=== PATIENT | female | born 1935 | race Hispanic/Latino ===

== ENCOUNTER 2018-01-08 12:48 | Emergency (ER) | payer OTHER ==
[2018-01-08 13:39] LABS: Urine Blood TRACE (NEG); Urine Glucose NEGATIVE (NEG); Urine Protein NEGATIVE (NEG); Urine Specific Gravity 1.025 (1.005-1.030)
[2018-01-08 14:10] LABS: Albumin 3.5 g/dL (3.4-5.0); Bilirubin Direct 0.1 mg/dL (0-0.2); Bilirubin Total 0.5 mg/dL (0.2-1.0); Potassium 4.5 mmol/L (3.5-5.1); Protein, Total 7.4 g/dL (6.4-8.2)
[2018-01-08 14:14] LABS: Urine Bacteria <20 /HPF (<20); Urine Culture Reflex Order REFLEXED; Urine Mucus LIGHT /HPF (NONE SEEN)
[2018-01-08 14:34] LABS: Absolute Lymphocytes (CBC) 1.4 K/uL (0.7-4.9); Absolute Monocytes 0.4 K/uL (0.1-1.3); Absolute Neutrophil 6.9 K/uL (1.8-8.0); Basophils % 0.3 % (0-1.3); Eosinophils % 0.3 % (0-4.4); Hematocrit 38.1 % (36.0-45.0); Lymphocytes % 15.6 % (15.3-44.8); MCH 31.6 pg (27.0-35.0); MCV 92.7 fL (80-100); MPV 8.5 fL (7.6-11.3); Monocytes % 4.9 % (3.3-12.3); RBC Red Blood Cell Count 4.11 M/uL (3.86-4.86)
--- NOTE | 2018-01-08 14:43 | RAD REPORT ---
EXAM DESCRIPTION: CT - Abdomen Pelvis W Contrast - 01/08/2018 2:28 pm CLINICAL HISTORY: Left-sided abdominal pain, back pain COMPARISON: None. TECHNIQUE: Biphasic, helical CT imaging of the abdomen and pelvis was performed following 100 ml non -ionic IV contrast. Oral contrast was given. All CT scans are performed using dose optimization technique as appropriate and may include automated exposure control or mA/KV adjustment according to patient size. FINDINGS: Scarring changes are present in the lung bases. No acute lung base finding. No pericardial thickening or effusion. The liver, spleen, and pancreas show no suspicious findings. Cholecystectomy clips are present. Bilia ry tree within normal limits for a post cholecystectomy patient. Symmetric renal function is seen with no hydronephrosis or suspicious renal mass. No pyelonephritis o r acute renal parenchymal process. Contracted urinary bladder shows no suspicious finding. Uterus is absent. Ovaries are absent or atrophic. No dilated bowel loops or bowel wall thickening. Patient has prominent sigmoid diverticulosis without diverticulitis or mass identifiable. No free air, free fluid or inflammatory stranding. No hernia, mass or bulky lymphadenopathy. No adrenal abnormality. Disc and bony degenerative changes are present. No fracture or pathologic bone process identifiable. IMPRESSION: Prominent diverticulosis without diverticulitis, mass or other acute GI process. Prominent bony degenerative change without acute or destructive finding.
--- NOTE | 2018-01-08 14:56 | ER ---
Nurse's Notes [facility] Name: Albania Ricks Age: 82 yrs Sex: Female : 1935 Arrival Date: 01/08/2018 Time: 12:52 Bed 13 Private MD: None, None Diagnosis: Nausea and vomiting;Abdominal and pelvic pain;Low back pain Presentation: 01/08 13:00 Presenting complaint: Patient states: left low back pain radiating to LLQ that began aa5 this morning. Pt also reports diarrhea and vomited once today. Pt states "when I pee it's only a little bit at a time". 13:00 Transition of care: patient was not received from another setting of care. Onset of aa5 symptoms was January 08, 2018. Risk Assessment: Do you want to hurt yourself or someone else? Patient reports no desire to harm self or others. Initial Sepsis Screen: Does the patient meet any 2 criteria? No. Patient's initial sepsis screen is negative. Does the patient have a suspected source of infection? No. Patient's initial sepsis screen is negative. Care prior to arrival: None. 13:00 Method Of Arrival: Ambulatory aa5 13:00 Acuity: MCKENZIE 3 aa5 Historical: - Allergies: 13:05 Lisinopril (cough); aa5 - Home Meds: 13:20 metformin ER 500mg BID [Active]; losartan 50 mg oral tab 1 tab once daily [Active]; aa5 carvedilol 12.5 mg oral tab 1 tab 2 times per day [Active]; omeprazole 20 mg Oral cpDR 1 cap 2 times per day [Active]; - PMHx: 13:05 Diabetes - NIDDM; Hypertension; Hyperlipidemia; aa5 - PSHx: 13:05 Hysterectomy; Cholecystectomy; Tonsillectomy; aa5 - Immunization history:: Adult Immunizations unknown. - Social history:: Smoking status: Patient/guardian denies using tobacco. - Ebola Screening: : No symptoms or risks identified at this time. Screenin:10 Abuse screen: Denies threats or abuse. Nutritional screening: No deficits noted. aa5 Tuberculosis screening: No symptoms or risk factors identified. Fall Risk None identified. Assessment: 13:05 General: Appears uncomfortable, Behavior is calm, cooperative. Pain: Complains of pain aa5 in left low back Pain radiates to left lower quadrant Pain currently is 10 out of 10 on a pain scale. Quality of pain is described as crampy, Pain began this morning Is continuous. Neuro: Level of Consciousness is awake, alert, obeys commands, Oriented to person, place, time, situation. Cardiovascular: Heart tones S1 S2 present Rhythm is regular. Respiratory: Airway is patent Respiratory effort is even, unlabored, Respiratory pattern is regular, symmetrical, Breath sounds are clear bilaterally. GI: Abdomen is round non-distended, Bowel sounds present X 4 quads. Abd is soft X 4 quads Abdomen is tender to palpation in left lower quadrant Reports diarrhea, nausea, vomiting. : Reports Pt "when I pee it's only a little bit at a time" Denies burning with urination. EENT: No signs and/or symptoms were reported regarding the EENT system. Derm: Skin is pink, warm \\T\\ dry. Musculoskeletal: Range of motion: intact in all extremities. 13:45 Reassessment: Patient and/or family updated on plan of care and expected duration. Pain aa5 level reassessed. Patient is alert, oriented x 3, equal unlabored respirations, skin warm/dry/pink. Patient denies pain at this time. Patient states feeling better. Awaiting CT scan, pt notified of wait time . 14:15 Reassessment: Patient and/or family updated on plan of care and expected duration. Pain aa5 level reassessed. Patient is alert, oriented x 3, equal unlabored respirations, skin warm/dry/pink. Patient denies pain at this time. 14:20 Reassessment: Pt taken to CT scan via wheelchair . aa5 15:00 Reassessment: Dr. Oneil at bedside speaking to pt about results . aa5 15:30 Reassessment: Patient is alert, oriented x 3, equal unlabored respirations, skin aa5 warm/dry/pink. Patient denies pain at this time. Vital Signs: 13:05 BP 168 / 72; Pulse 67; Resp 18 S; Temp 98.2(O); Pulse Ox 96% on R/A; Weight 77.11 kg aa5 (R); Height 5 ft. 7 in. (170.18 cm) (R); 13:58 BP 157 / 65; Pulse 66; Resp 16 S; Pulse Ox 96% on R/A; Pain 0/10; aa5 13:05 Body Mass Index 26.63 (77.11 kg, 170.18 cm) aa5 ED Course: 12:52 Patient arrived in ED. mr 12:53 None, None is Private Physician. mr 12:59 Austin Oneil MD is Attending Physician. kdr 13:00 Arm band placed on Patient placed in an exam room, on a stretcher. aa5 13:00 Patient has correct armband on for positive identification. Placed in gown. Bed in low aa5 position. Call light in reach. Side rails up X2. 13:02 Sahra Garcia, RN is Primary Nurse. aa5 13:03 Triage completed. aa5 13:35 Inserted saline lock: 22 gauge in left forearm, using aseptic technique. Blood aa5 collected. 13:40 Initial lab(s) drawn, by ut, sent to lab. aa5 14:22 CT completed. Patient tolerated procedure well. Patient moved to CT via wheelchair. Patient moved back from CT. 14:28 CT Abd/Pelvis - W/Contrast In Process Unspecified. EDMS 15:30 No provider procedures requiring assistance completed. IV discontinued, intact, aa5 bleeding controlled, No redness/swelling at site. Pressure dressing applied. Administered Medications: No medications were administered Point of Care Testing: Blood Glucose: 13:17 Blood Glucose: 178 mg/dL; aa5 Ranges: Outcome: 14:55 Discharge ordered by . kdr 15:30 Discharged to home ambulatory, with friend. aa5 15:30 Condition: good 15:30 Discharge instructions given to patient, Instructed on discharge instructions, follow up and referral plans. medication usage, Demonstrated understanding of instructions, follow-up care, medications, Prescriptions given X 3. 15:31 Patient left the ED. 5 Signatures: Dispatcher [employer] EDDE Austin Oneil MD MD [facility] Lori Jones Kate Alonzo Sahra Garcia, RN RN 5 Lori Corral [facility]
--- NOTE | 2018-01-08 14:56 | EDPHYS ---
Physician Documentation [facility] Name: Albania Ricks Age: 82 yrs Sex: Female : 1935 Arrival Date: 01/08/2018 Time: 12:52 Bed 13 Private MD: None, None ED Physician Austin Oneil HPI: 01/08 17:09 This 82 yrs old Female presents to ER via Ambulatory with complaints of kdr Vomiting, Back Pain. 17:10 The patient presents with abdominal pain in the left upper quadrant, in the left lower kdr quadrant. Onset: The symptoms/episode began/occurred acutely, this morning. The symptoms do not radiate. Associated signs and symptoms: Pertinent positives: nausea and vomiting, Pertinent negatives: chest pain, constipation, diarrhea, dysuria, fever, headache, hematuria, shortness of breath. The symptoms are described as achy, crampy, intermittent, vague. Modifying factors: The symptoms are alleviated by nothing, the symptoms are aggravated by nothing. Severity of pain: At its worst the pain was moderate severe in the emergency department the pain has resolved. The patient has not experienced similar symptoms in the past. The patient has not recently seen a physician. Historical: - Allergies: 13:05 Lisinopril (cough); aa5 - Home Meds: 13:20 metformin ER 500mg BID [Active]; losartan 50 mg oral tab 1 tab once daily [Active]; aa5 carvedilol 12.5 mg oral tab 1 tab 2 times per day [Active]; omeprazole 20 mg Oral cpDR 1 cap 2 times per day [Active]; - PMHx: 13:05 Diabetes - NIDDM; Hypertension; Hyperlipidemia; aa5 - PSHx: 13:05 Hysterectomy; Cholecystectomy; Tonsillectomy; aa5 - Immunization history:: Adult Immunizations unknown. - Social history:: Smoking status: Patient/guardian denies using tobacco. - Ebola Screening: : No symptoms or risks identified at this time. ROS: 17:10 Constitutional: Negative for fever, chills, and weight loss, Eyes: Negative for injury, kdr pain, redness, and discharge, ENT: Negative for injury, pain, and discharge, Neck: Negative for injury, pain, and swelling, Cardiovascular: Negative for chest pain, palpitations, and edema, Respiratory: Negative for shortness of breath, cough, wheezing, and pleuritic chest pain, Back: Negative for injury and pain, : Negative for injury, bleeding, discharge, and swelling, MS/Extremity: Negative for injury and deformity, Skin: Negative for injury, rash, and discoloration, Neuro: Negative for headache, weakness, numbness, tingling, and seizure activity. Psych: Negative for depression, anxiety, suicide ideation, homicidal ideation, and hallucinations, Allergy/Immunology: Negative for hives, rash, and allergies, Endocrine: Negative for neck swelling, polydipsia, polyuria, polyphagia, and marked weight changes, Hematologic/Lymphatic: Negative for swollen nodes, abnormal bleeding, and unusual bruising. 17:10 Abdomen/GI: Positive for abdominal pain, nausea and vomiting, Negative for constipation, abdominal cramps, abdominal distension, anorexia, dysphagia, hematemesis, black/tarry stool, rectal pain. Exam: 17:10 Constitutional: This is a well developed, well nourished patient who is awake, alert, kdr and in no acute distress. Head/Face: Normocephalic, atraumatic. Eyes: Pupils equal round and reactive to light, extra-ocular motions intact. Lids and lashes normal. Conjunctiva and sclera are non-icteric and not injected. Cornea within normal limits. Periorbital areas with no swelling, redness, or edema. Neck: Trachea midline, no thyromegaly or masses palpated, and no cervical lymphadenopathy. Supple, full range of motion without nuchal rigidity, or vertebral point tenderness. No Meningismus. Chest/axilla: Normal chest wall appearance and motion. Nontender with no deformity. No lesions are appreciated. Cardiovascular: Regular rate and rhythm with a normal S1 and S2. No gallops, murmurs, or rubs. Normal PMI, no JVD. No pulse deficits. Respiratory: Lungs have equal breath sounds bilaterally, clear to auscultation and percussion. No rales, rhonchi or wheezes noted. No increased work of breathing, no retractions or nasal flaring. Back: No spinal tenderness. No costovertebral tenderness. Full range of motion. Skin: Warm, dry with normal turgor. Normal color with no rashes, no lesions, and no evidence of cellulitis. MS/ Extremity: Pulses equal, no cyanosis. Neurovascular intact. Full, normal range of motion. Neuro: Awake and alert, GCS 15, oriented to person, place, time, and situation. Cranial nerves II-XII grossly intact. Motor strength 5/5 in all extremities. Sensory grossly intact. Cerebellar exam normal. Normal gait. Psych: Awake, alert, with orientation to person, place and time. Behavior, mood, and affect are within normal limits. 17:10 Abdomen/GI: Inspection: abdomen appears normal, Bowel sounds: normal, Palpation: soft, mild abdominal tenderness, in the anterior aspect of left lateral abdomen. Vital Signs: 13:05 BP 168 / 72; Pulse 67; Resp 18 S; Temp 98.2(O); Pulse Ox 96% on R/A; Weight 77.11 kg aa5 (R); Height 5 ft. 7 in. (170.18 cm) (R); 13:58 BP 157 / 65; Pulse 66; Resp 16 S; Pulse Ox 96% on R/A; Pain 0/10; aa5 13:05 Body Mass Index 26.63 (77.11 kg, 170.18 cm) aa5 MDM: 14:55 Patient medically screened. kdr 17:10 Data reviewed: vital signs, nurses notes, lab test result(s), radiologic studies. kdr Counseling: I had a detailed discussion with the patient and/or guardian regarding: the historical points, exam findings, and any diagnostic results supporting the discharge/admit diagnosis, lab results, radiology results, the need for outpatient follow up. Special discussion: Based on the patient's Hx, exam, and Dx evaluation, there is no indication for emergent surgery or inpatient Tx. It is understood by the patient/guardian that if the Sx's persist or worsen they need to return immediately for re-evaluation. I discussed with the patient/guardian in detail that at this point there is no indication for admission to the hospital. It is understood, however, that if the symptoms persist or worsen the patient needs to return immediately for re-evaluation. 01/08 13:34 Order name: Urine Dipstick--Ancillary (enter results); Complete Time: 13:40 eb 01/08 13:39 Order name: Basic Metabolic Panel; Complete Time: 14:53 kdr 01/08 13:39 Order name: CBC with Diff; Complete Time: 14:53 kdr 01/08 13:39 Order name: Creatinine for Radiology; Complete Time: 14:53 kdr 01/08 13:39 Order name: Hepatic Function; Complete Time: 14:53 [facility] 01/08 13:39 Order name: Lipase; Complete Time: 14:53 [facility] 01/08 13:39 Order name: Urine Microscopic Only; Complete Time: 14:53 [facility] 01/08 13:39 Order name: IV Saline Lock; Complete Time: 13:55 [facility] 01/08 13:39 Order name: Labs collected and sent; Complete Time: 13:55 [facility] 01/08 13:39 Order name: Urine Dipstick-Ancillary (obtain specimen); Complete Time: 13:56 [facility] 01/08 13:39 Order name: CT Abd/Pelvis - W/Contrast; Complete Time: 14:53 [facility] 01/08 14:16 Order name: Urine Culture EDMS Administered Medications: No medications were administered Point of Care Testing: Blood Glucose: 13:17 Blood Glucose: 178 mg/dL; aa5 Ranges: Critical Glucose Levels:Adult <50 mg/dl or >400 mg/dl <40 mg/dl or >180 mg/dl Disposition: 01/08/18 14:55 Discharged to Home. Impression: Nausea and vomiting, Abdominal and pelvic pain, Low back pain. - Condition is Stable. - Discharge Instructions: Abdominal Pain, Adult, [id number], Back Pain, Adult, [id number], Diverticulosis. - Prescriptions for Zofran 4 mg Oral Tablet - take 1 tablet by ORAL route every 4-6 hours As needed; 15 tablet. Tramadol 50 mg Oral Tablet - take 1 tablet by ORAL route every 8 hours as needed; 12 tablet. Pepcid 20 mg Oral Tablet - take 1 tablet by ORAL route once daily; 20 tablet. - Medication Reconciliation Form, Thank You Letter form. - Follow up: Private Physician; When: 2 - 3 days; Reason: If symptoms return, Further diagnostic work-up, Recheck today's complaints, Continuance of care, Re-evaluation by your physician. - Problem is new. - Symptoms have improved. Signatures: Dispatcher [employer] EDMS Austin Oneil MD MD kdr Calderon, Audri RN RN [email or web address] Lori Corral5 Corrections: (The following items were deleted from the chart) 15:31 14:55 01/08/2018 14:55 Discharged to Home. Impression: Nausea and vomiting; Abdominal mh5 and pelvic pain; Low back pain. Condition is Stable. Forms are Medication Reconciliation Form, Thank You Letter, Antibiotic Education, Prescription Opioid Use. Follow up: Private Physician; When: 2 - 3 days; Reason: If symptoms return, Further diagnostic work-up, Recheck today's complaints, Continuance of care, Re-evaluation by your physician. Problem is new. Symptoms have improved. kdr
== END 2018-01-08 15:31 | disposition home or self-care (01) ==
LOC: ER 12:48
DX: R11.2 Nausea with vomiting, unspecified (principal); R10.9 Unspecified abdominal pain; R10.2 Pelvic and perineal pain; M54.5 Low back pain; E11.9 Type 2 diabetes mellitus without complications; E78.5 Hyperlipidemia, unspecified; I10 Essential (primary) hypertension; Z88.8 Allergy status to other drugs, medicaments and biological substances
CPT/HCPCS: 36415; 74177; 80048; 80076; 82962; 83690; 85025; 87086; 99284; Q9967; 81003; 81015; 87088

== ENCOUNTER 2020-01-19 15:18 | Emergency (ER) | payer OTHER ==
--- OUTSIDE RECORDS SUMMARY | 2020-01-19 15:20 | XMS REPORT | Continuity of Care Document ---
:1935 Author Organization [facility] t Address [address] [place] [address] Care Team Providers Name Role Phone Nicki Broussard MD Attending Clinician Problems This patient has no known problems. Allergies, Adverse Reactions, Alerts This patient has no known allergies or adverse reactions. Medications This patient has no known medications. Procedures This patient has no known procedures. Encounters Start End Encounter Admission Attending Care Care Encounter Source Date/Time Date/Time Type Type Clinicians Facility Department ID 2019-12-21 2019-12-21 Refill JOEL Broussard [id number] 00:00:00 00:00:00 Lori Caceres [facility] [id number] [facility] [id number] [place] [id number] Results This patient has no known results.
--- OUTSIDE RECORDS SUMMARY | 2020-01-19 15:21 | XMS REPORT | Summary of Care ---
:1935 Author Organization [facility] - [facility] Address [address] [place] [address] Care Team Providers Name Role Phone Nicki Broussard MD Primary Care Provider Reason for Visit Reason Comments Refill Request Encounter Details Date Type Department Care Team Description 12/21/2019 Refill [facility]- Lori Broussard MD Refill Request [id number] [place] [address] [place] [address], [place] [address] Allergies No Known Allergiesdocumented as of this encounter (statuses as of 01/04/2020) Medications Medication Sig Dispensed Refills Start End Status Date Date OMEPRAZOLE 20 MG ORAL one po bid 180 3 02/25/20 Active CPDR 09 B COMPLEX & C NO.20-FOLIC Take 1 Tab 0 Active ACID ORAL by mouth daily. hydrocortisone 1% in Apply to 16 oz 5 08/17/19 Active eucerin (COMPOUNDED) Crea affected 16 creamIndications: Xerosis area(s) as of skin needed for Itching. acetaminophen 500 mg Take 1 100 tablet 2 01/10/20 Active tablet tablet by 17 mouth every 6 (six) hours as needed for Pain. 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 Dx insulin E11.9 ALPRAZolam (XANAX) 0.25 Take 1 60 tablet 1 01/23/20 Active mg tabletIndications: tablet by 19 Anxiety mouth 2 (two) times daily as needed. timolol 0.5 % ophthalmic Place 1 0 06/01/20 Active solution Drop in 19 both eyes 2 (two) times daily. Polyethylene Glycol 3350 Take 1 0 Active (MIRALAX) 17 gram powder Packet by mouth as needed for Constipatio n. docusate (COLACE) 100 mg Take 100 mg 0 Active capsule by mouth once daily as needed for Constipatio n. Carboxymethylcellulose Place 1 0 Active Sodium (REFRESH TEARS) Drop in 0.5 % Drop each eye 2 (two) times daily. DUREZOL 0.05 % Drop 0 06/29/19 Active 20 ILEVRO 0.3 % DrpS 0 06/30/19 Ac tive 20 ofloxacin 0.3 % 0 06/29/19 Acti ve ophthalmic solution 20 rosuvastatin (CRESTOR) 40 Take 1 90 tablet 4 08/03/19 Active mg tabletIndications: tablet by 20 Type 2 diabetes mellitus mouth at without complication, bedtime. without long-term current use of insulin, Mixed hypercholesterolemia and hypertriglyceridemia losartan 50 mg Take 1 90 tablet 4 08/03/19 Activ e tabletIndications: Type 2 tablet by 20 diabetes mellitus without mouth complication, without daily. long-term current use of insulin, Essential hypertension, benign ONETOUCH VERIO USE STRIP 100 Strip 3 12/21/19 Acti ve stripIndications: Type 2 TO CHECK 20 diabetes mellitus without GLUCOSE complication, without ONCE DAILY long-term current use of insulin metFORMIN 500 mg tablet Take 1 180 tablet 1 01/04/20 Active tablet by 20 mouth 2 (two) times daily with meals. ONETOUCH VERIO USE 100 Strip 1 05/25/20 Disco ntinued stripIndications: Type 2 DIRECTED 19 020 diabetes mellitus without ONCE DAILY complication, without long-term current use of insulin metformin ER 500 mg 24 hr Take 1 180 tablet 4 08/03/1912/15 Discontinued tabletIndications: Type 2 tablet by 20 020 (Reorder) diabetes mellitus without mouth daily complication, without with long-term current use of breakfast. insulin metformin ER 500 mg 24 hr Take 1 180 tablet 4 12/21/1906/08 Discontinued tabletIndications: Type 2 tablet by 20 020 (Alternate diabetes mellitus without mouth daily therapy) complication, without with long-term current use of breakfast. insulin documented as of this encounter (statuses as of 01/04/2020) Active Problems Problem Noted Date Need for vaccination 07/07/2018 Type 2 diabetes mellitus without complication, without long-term current 09/19/2017 use of insulin Mixed hypercholesterolemia and hypertriglyceridemia MARCELLE-inhibitor cough 08/17/2015 Essential hypertension, benign 05/12/2009 Other symptoms involving head and neck(784.99) 008 Esophageal reflux 08/22/2007 DRY MOUTH 08/22/2007 Other congenital anomaly of gallbladder, bile ducts, a nd liver documented as of this encounter (statuses as of 01/04/2020) Resolved Problems Problem Noted Date Resolved Date Type 2 diabetes mellitus without complications 08/22/2007 09/19/2017 Overview: ICD10 Diagnosis Term Spinner Concrete Pipe Utility HLD (hyperlipidemia) 08/22/2007 01/09/2017 Overview: ICD10 Diagnosis Term Spinner Concrete Pipe Utility documented as of this encounter (statuses as of 01/04/2020) Immunizations Name Administration Dates Next Due Influenza High Dose 03/22/2019, 07/07/2018, 05/01/2017, 04/02/2016, 04/24/2015, 04/27/2010 Influenza Virus Vaccine 05/02/2009 Pneumococcal 13 Conjugate, PCV13 09/13/2016 (Prevnar 13) Pneumococcal Polysaccharide, PPSV23 04/27/2010 (PNEUMOVAX) documented as of this encounter Social History Tobacco Use Types Packs/Day Years Used Date Never Smoker Smokeless Tobacco: Never Used Alcohol Use Drinks/Week oz/Week Comments No Sex Assigned at Date Recorded Not on file Job Start Date Occupation Industry Not on file Not on file Not on file Travel History Travel Start Travel End No recent travel history available. documented as of this encounter Last Filed Vital Signs Not on filedocumented in this encounter Plan of Treatment Health Maintenance Due Date Last Done Comments DTaP,Tdap,and Td Vaccines (1 - 1948 Tdap) Zoster Recombinant Vaccine 1987 (SHINGRIX) (1 of 2) Medicare Wellness Visit 2002 URINE MICROALBUMIN 09/25/2019 09/24/2018, 09/13/2016, 02/17/2015, Additional history exists EYE EXAM 01/20/2020 01/19/2019 FOOT EXAM 01/23/2020 01/22/2019, 01/22/2019 HgA1C 02/01/2020 08/03/2019, 01/22/2019, 09/24/2018, Additional history exists INFLUENZA VACCINE (#1) 2020 03/22/2019, 07/07/2018, 05/01/2017, Additional history exists LDL-C 02/25/2020 02/24/2019, 01/22/2019, 09/24/2018, Additional history exists CREATININE (SERUM) 06/29/2020 06/29/2019, 01/22/2019, 04/23/2017, Additional history exists Depression Screening 08/12/2020 08/12/2019 Osteoporosis Screening 02/05/2029 02/05/2019 PNEUMOCOCCAL VACCINES 65+ Completed 09/13/2016, 04/27/2010 documented as of this encounter Implants Implanted Type Area Employment Service Specialist Device Shelf Model / Serial Identifier Expiration / Lot Date Lens, Cas #Sn60wf - [id number] LENS Left: Eye Cas 12/14/2023 SN60WF / Implanted: Qty: 1 on 07/08/2019 by Alberto Lopez MD at [facility] 2 [id number] / NA Lens, Cas #Sn60wf - [id number] LENS Right: Cas 10/14/2023 SN60WF / Implanted: Qty: 1 on 08/12/2019 by Alberto Lopez MD at [facility] Eye 1 [id number] / NA documented as of this encounter Results Not on filedocumented in this encounter Visit Diagnoses Diagnosis Type 2 diabetes mellitus without complic ation, without long-term current use of insulin documented in this encounter Insurance Payer Benefit Plan / Subscriber ID Effective Phone Address T ype Group Dates MEDICARE MEDICARE PART xxxxxxxxxxx 2002-Pre [phone] Medicare A & B sent [phone] [id number] MAZIN [place]Z [phone] [employer] xxxxxxxxx 2019-Pres [address] [place] [id number] [place] [address] documented as of this encounter
--- OUTSIDE RECORDS SUMMARY | 2020-01-19 15:21 | XMS REPORT | Summary of Care ---
:1935 Author Organization [facility] Address [address] [place] [address] Care Team Providers Name Role Phone Nicki Broussard MD Primary Care Provider Reason for Visit Reason Comments Diabetes Hypertension Encounter Details Date Type Department Care Team Description 11/05/2019 Telemedicine Visit [facility] Lori Broussard Type 2 d iabetes mellitus without complication, without long-term current use of insulin (Primary Dx); Geriatrics- EMD Essential hypertension, benign; [address] Gastroesophageal reflux dise ase without esophagitis Primary Care [id number] [place], [place] [address] [address], [address] [place], [place] [phone] [address] (Fax) [phone] Allergies No Known Allergiesdocumented as of this encounter (statuses as of 11/05/2019) Medications Medication Sig Dispensed Refills Start Date End Date Status OMEPRAZOLE 20 MG ORAL CPDR one po bid 180 3 02/24/2009 Active B COMPLEX & C NO.20-FOLIC Take 1 Tab by 0 Active ACID ORAL mouth daily. hydrocortisone 1% in Apply to 16 oz 5 08/17/2015 Active eucerin (COMPOUNDED) Crea affected creamIndications: Xerosis area(s) as of skin needed for Itching. acetaminophen 500 mg tablet Take 1 tablet 100 tablet 2 017 Active by mouth every 6 (six) hours as needed for Pain. latanoprost 0.005 % Place 1 Drop 2 10/13/2018 Active ophthalmic in both eyes dropsIndications: Chronic at bedtime. primary angle-closure glaucoma of both eyes, moderate stage ONE TOUCH DELICA 33 gauge Use as 100 Each 1 10/27/2018 Active MiscIndications: Type 2 directed to diabetes mellitus without test blood complication, without sugar once long-term current use of daily. Dx insulin E11.9 ALPRAZolam (XANAX) 0.25 mg Take 1 tablet 60 tablet 1 9 Active tabletIndications: Anxiety by mouth 2 (two) times daily as needed. ONETOUCH VERIO USE 100 Strip 1 05/25/2019 Acti ve stripIndications: Type 2 DIRECTED ONCE diabetes mellitus without DAILY complication, without long-term current use of insulin timolol 0.5 % ophthalmic Place 1 Drop 0 06/01/2019 Active solution in both eyes 2 (two) times daily. Polyethylene Glycol 3350 Take 1 Packet 0 Active (MIRALAX) 17 gram powder by mouth as needed for Constipation. docusate (COLACE) 100 mg Take 100 mg 0 Active capsule by mouth once daily as needed for Constipation. Carboxymethylcellulose Place 1 Drop 0 Active Sodium (REFRESH TEARS) 0.5 in each eye 2 % Drop (two) times daily. DUREZOL 0.05 % Drop 0 06/29/2019 Active ILEVRO 0.3 % DrpS 0 06/30/2019 A ctive ofloxacin 0.3 % ophthalmic 0 06/29/2019 Active solution metformin ER 500 mg 24 hr Take 1 tablet 180 tablet 4 0 Active tabletIndications: Type 2 by mouth diabetes mellitus without daily with complication, without breakfast. long-term current use of insulin rosuvastatin (CRESTOR) 40 Take 1 tablet 90 tablet 4 08/03/2019 Active mg tabletIndications: Type by mouth at 2 diabetes mellitus without bedtime. complication, without long-term current use of insulin, Mixed hypercholesterolemia and hypertriglyceridemia losartan 50 mg Take 1 tablet 90 tablet 4 08/03/2019 Active tabletIndications: Type 2 by mouth diabetes mellitus without daily. complication, without long-term current use of insulin, Essential hypertension, benign documented as of this encounter (statuses as of 11/05/2019) Active Problems Problem Noted Date Need for vaccination 07/07/2018 Type 2 diabetes mellitus without complication, without long-term current 09/19/2017 use of insulin Mixed hypercholesterolemia and hypertriglyceridemia AMRCELLE-inhibitor cough 08/17/2015 Essential hypertension, benign 05/12/2009 Other symptoms involving head and neck(784.99) 008 Esophageal reflux 08/22/2007 DRY MOUTH 08/22/2007 Other congenital anomaly of gallbladder, bile ducts, a nd liver documented as of this encounter (statuses as of 11/05/2019) Resolved Problems Problem Noted Date Resolved Date Type 2 diabetes mellitus without complications 08/22/2007 09/19/2017 Overview: ICD10 Diagnosis Term Early Breastfeeding Care Specialist Utility HLD (hyperlipidemia) 08/22/2007 01/09/2017 Overview: ICD10 Diagnosis Term Early Breastfeeding Care Specialist Utility documented as of this encounter (statuses as of 11/05/2019) Immunizations Name Administration Dates Next Due Influenza [...] Signs Not on filedocumented in this encounter Progress Notes Lori Broussard MD - 11/05/2019 1:30 PM CDT Geriatric Telemedicine Clinic Note Location of Patient: Home Location of Provider: Offsite Date of Service: 11/05/2019 Chief Complaint Patient presents with Diabetes Hypertension HPI: Albania Ricks is a 84 year old female who has given verbal consent for a telemedicine encounter today. Today's telemedicine encounter was conducted via telephone (audio only). Communication with patient was conducted via Telephone due to patient unable to obtain video call option. . Diabetes She has a history of Diabetes Mellitus II. Patient has no acute problems today. Symptoms are unchanged. Patient denies excessive eating, excessive thirst, foot pain, foot ulcer/infection, increased fatigue, low blood sugar, nocturia, polyuria and sweating. Results of home finger stick blood glucose are: 109 to 130. Last vision screening recent and she reports floaters since cataract surgery . Patient checks feet regularly: yes. Last hemoglobin A1C was checked ; result was . POCT HBA1C (%) Date Value 08/03/2019 7.7 (A) 07/07/2018 7.3 (A) CREATININE Date Value 06/29/2019 1.02 mg/dL 04/27/2010 0.88 MG/DL Hypertension She has a history of hypertension. Patient complains today of blurred vision, chest pain, dizziness, nausea, numbness, severe headache, shortness of breath and swelling. Symptoms are unchanged. Patient denies blurred vision, chest pain, dizziness, nausea, numbness, severe headache, shortness of breath and swelling. Patient reports adherence to medication(s). Blood pressure checks at home range 111 - 120 systolic and 61 - 70 diastolic. ROS: Review of Systems Constitutional: Negative. HENT: Negative. Eyes: Positive for visual disturbance. Floateer Respiratory: Negative. Breasts: Negative. Cardiovascular: Negative. Gastrointestinal: Negative. Genitourinary: Negative. Musculoskeletal: Negative. Skin: Negative. Neurological: Negative. Psychiatric/Behavioral: Negative. Medications: Current Outpatient Medications on File Prior to Visit Medication Sig Dispense Refill DUREZOL 0.05 % Drop ILEVRO 0.3 % DrpS losartan 50 mg tablet Take 1 tablet by mouth daily. 90 tablet 4 metformin ER 500 mg 24 hr tablet Take 1 tablet by mouth daily with breakfast. 180 tablet 4 ofloxacin 0.3 % ophthalmic solution rosuvastatin (CRESTOR) 40 mg tablet Take 1 tablet by mouth at bedtime. 90 tablet 4 Carboxymethylcellulose Sodium (REFRESH TEARS) 0.5 % Drop Place 1 Drop in each eye 2 (two) times daily. docusate (COLACE) 100 mg capsule Take 100 mg by mouth once daily as needed for Constipation. Polyethylene Glycol 3350 (MIRALAX) 17 gram powder Take 1 Packet by mouth as needed for Constipation. timolol 0.5 % ophthalmic solution Place 1 Drop in both eyes 2 (two) times daily. ONETOUCH VERIO strip USE DIRECTED ONCE DAILY 100 Strip 1 ALPRAZolam (XANAX) 0.25 mg tablet Take 1 tablet by mouth 2 (two) times daily as needed. 60 tablet 1 latanoprost 0.005 % ophthalmic drops Place 1 Drop in both eyes at bedtime. 2 ONE TOUCH DELICA 33 gauge Misc Use as directed to test blood sugar once daily. Dx E11.9 100 Each1 acetaminophen 500 mg tablet Take 1 tablet by mouth every 6 (six) hours as needed for Pain. 100 tablet 2 hydrocortisone 1% in eucerin (COMPOUNDED) Crea cream Apply to affected area(s) as needed for Itching. 16 oz 5 B COMPLEX & C NO.20-FOLIC ACID ORAL Take 1 Tab by mouth daily. OMEPRAZOLE 20 MG ORAL CPDR one po bid 180 3 No current facility-administered medications on file prior to visit. Past Medical Hx: Past Medical History: Diagnosis Date MARCELLE-inhibitor cough 08/17/2015 Foley cyst, left Cataract DIABETES MELLITUS TYPE II-UNCOMPL 08/22/2007 Diverticulosis 01/2018 CT abdomen Esophageal reflux 08/22/2007 Essential hypertension, benign 05/12/2009 HYPERLIPIDEMIA NEC/NOS 08/22/2007 Hypertension Other congenital anomaly of gallbladder, bile ducts, and liver Social History Tobacco Use Smoking status: Never Smoker Smokeless tobacco: Never Used Substance Use Topics Alcohol use: No Drug use: No Physical Exam: A physical exam was not conducted during this telemedicine encounter, however upon verbal evaluation the following was noted: Constitutional: Alert and in no distress Resp: Breathing comfortably Neuro: answers questions appropriately Psych: mood/ affect normal ASSESSMENT/PLAN Albania Ricks is a 84 year old female with PMH as above presenting with well controlled DM and HTN. She had learned to monitor and reduce mediation when BP or sugar are low she takes 1/2 tablet only ICD-10-CM ICD-9-CM 1. Type 2 diabetes mellitus without complication, without long-term current use of insulin E11.9 250.00 2. Essential hypertension, benign I10 401.1 3. Gastroesophageal reflux disease without esophagitis K21.9 530.81 PLan continue current care She needs f/u Eye MD A total of 15 minutes were spent on the telephone/ video call with the patient. Lori Broussard MD 11/05/2019 11:32 AM documented in this encounter Plan of Treatment Health Maintenance Due Date Last Done Comments DTaP,Tdap,and Td Vaccines (1 - 1948 Tdap) Zoster Recombinant Vaccine 1987 (SHINGRIX) (1 of 2) Medicare Wellness Visit 2002 URINE MICROALBUMIN 09/25/2019 09/24/2018, 09/13/2016, 02/17/2015, Additional history exists EYE EXAM 01/20/2020 01/19/2019 FOOT EXAM 01/23/2020 01/22/2019, 01/22/2019 HgA1C 02/01/2020 08/03/2019, 01/22/2019, 09/24/2018, Additional history exists LDL-C 02/25/2020 02/24/2019, 01/22/2019, 09/24/2018, Additional history exists CREATININE (SERUM) 06/29/2020 06/29/2019, 01/22/2019, 04/23/2017, Additional history exists Osteoporosis Screening 02/05/2029 02/05/2019 PNEUMOCOCCAL VACCINES 65+ Completed 09/13/2016, 04/27/2010 INFLUENZA VACCINE Completed 03/22/2019, 07/07/2018, 05/01/2017, Additional history exists documented as of this encounter Implants Implanted Type Area Administrative Processor Device Shelf Model / Serial Identifier Expiration / Lot Date Lens, Cas #Sn60wf - [id number] LENS Left: Eye Cas 12/14/2023 SN60WF / Implanted: Qty: 1 on 07/08/2019 by Alberto Lopez MD at [facility] 0 [id number] / NA Lens, Cas #Sn60wf - [id number] LENS Right: Cas 10/14/2023 SN60WF / Implanted: Qty: 1 on 08/12/2019 by Alberto Lopez MD at [facility] Eye 6 [id number] / NA documented as of this encounter Results Not on filedocumented in this encounter Visit Diagnoses Diagnosis Type 2 diabetes mellitus without complic ation, without long-term current use of insulin - Primary Essential hypertension, benign Gastroesophageal reflux disease without esophagitis Esophageal reflux documented in this encounter Insurance Payer Benefit Plan / Subscriber ID Effective Phone Address T ype Group Dates MEDICARE MEDICARE PART xxxxxxxxxxx 2002-Pre [phone] Medicare A & B sent [phone] [id number] [place] [phone] [employer] xxxxxxxxx 2019-Pres [address] [place] [id number] [place] [address] documented as of this encounter
--- OUTSIDE RECORDS SUMMARY | 2020-01-19 15:21 | XMS REPORT | Summary of Care ---
:1935 Author Organization [facility] - [facility] Address [address] [place] [address] Care Team Providers Name Role Phone Nicki Broussard MD Primary Care Provider Reason for Visit Reason Comments Refill Request Encounter Details Date Type Department Care Team Description 12/21/2019 Refill [facility]- Lori Broussard MD Refill Request [id number] [place] [address] [place] [address], [place] [facility] [place] [address] Allergies No Known Allergiesdocumented as of this encounter (statuses as of 12/21/2019) Medications Medication Sig Dispensed Refills Start End [...] ONCE DAILY long-term current use of insulin metformin ER 500 mg 24 hr Take 1 180 tablet 4 12/21/19 Active tabletIndications: Type 2 tablet by 20 diabetes mellitus without mouth daily complication, without with long-term current use of breakfast. insulin ONETOUCH VERIO USE 100 Strip 1 05/25/20 [...] as of this encounter (statuses as of 12/21/2019) Active Problems Problem Noted Date Need for [...] as of this encounter (statuses as of 12/21/2019) Resolved Problems Problem Noted Date Resolved Date Type 2 diabetes mellitus without complications 08/22/2007 09/19/2017 Overview: ICD10 Diagnosis Term Environmental Field Professional Utility HLD (hyperlipidemia) 08/22/2007 01/09/2017 Overview: ICD10 Diagnosis Term Environmental Field Professional Utility documented as of this encounter (statuses as of 12/21/2019) Immunizations Name Administration Dates Next Due Influenza [...] of this encounter Implants Implanted Type Area Transporter Radiology Device Shelf Model / Serial Identifier Expiration / Lot Date Lens, Cas #Sn60wf - [id number] LENS Left: Eye Cas 12/14/2023 SN60WF / Implanted: Qty: 1 on 07/08/2019 by Alberto Lopez MD at [facility] 1 [id number] / NA Lens, Cas #Sn60wf - [id number] LENS Right: Cas 10/14/2023 SN60WF / Implanted: Qty: 1 on 08/12/2019 by Alberto Lopez MD at [facility] Eye 5 [id number] / NA documented as of this encounter Results Not on filedocumented in this encounter Visit Diagnoses Diagnosis Type 2 diabetes mellitus without complic ation, without long-term current use of insulin documented in this encounter Insurance Payer Benefit Plan / Subscriber ID Effective Phone Address T ype Group Dates MEDICARE MEDICARE PART xxxxxxxxxxx 2002-Pre [phone] [address] Medicare A & B sent [phone] [id number] MA[place] [phone] [employer] xxxxxxxxx 2019-Pres [address] [place] [id number] [place] [address] documented as of this encounter
[2020-01-19] MEDS ORDERED: KETOROLAC 30 MG/ML INJ ONE ×2 (16:21→18:45)
[2020-01-19] MEDS ORDERED: FENTANYL CITR 100 MCG/2 ML ONE (16:21)
[2020-01-19] MEDS ORDERED: NA CHLORIDE 0.9% 250 ML ONE (17:07)
[2020-01-19 17:19] LABS: Basophils % 1.1 % (0-1.3); Hematocrit 37.3 % (36.0-45.0); Lymphocytes % 27.1 % (15.3-44.8); MPV 7.9 fL (7.6-11.3); RBC Red Blood Cell Count 4.06 M/uL (3.86-4.86)
[2020-01-19 17:34] LABS: ALT/SGPT 37 U/L (12-78); AST/SGOT 25 U/L (15-37); Albumin 3.5 g/dL (3.4-5.0); Alkaline Phosphatase 93 U/L (45-117); BUN Blood Urea Nitrogen 23 mg/dL (7-18); Bicarbonate 24 mmol/L (21-32); Bilirubin Direct < 0.1 mg/dL (0-0.2); Bilirubin Total 0.2 mg/dL (0.2-1.0); Glucose Level 150 mg/dL (74-106); Lipase 161 U/L (73-393); Potassium 4.4 mmol/L (3.5-5.1); Protein, Total 7.1 g/dL (6.4-8.2); Sodium Level 143 mmol/L (136-145)
--- NOTE | 2020-01-19 18:04 | RAD REPORT ---
EXAM DESCRIPTION: US - Extremity Venous [facility] - 01/19/2020 5:02 pm CLINICAL HISTORY: PAIN COMPARISON: None. TECHNIQUE: Real-time sonographic evaluation of the left lower extremity deep venous system was perfo rmed. FINDINGS: Normal compressibility, flow augmentation, phasic flow and spontaneous flow are identified in the left lower extremity common femoral, superficial femoral, popliteal and posterior tibial vein s. No intraluminal filling defects seen. IMPRESSION: No DVT in the left lower extremity.
--- NOTE | 2020-01-19 18:21 | RAD REPORT ---
EXAM DESCRIPTION: CT - Angio Aorta For Dissection - 01/19/2020 6:10 pm CLINICAL HISTORY: back pain COMPARISON: Contrast CT abdomen and pelvis December 2017 TECHNIQUE: Dynamically enhanced 3 mm thick images of the chest, abdomen, and upper pelvis were obtai marc during administration of approximately 150mL Isovue 370 IV contrast. Sagittal and coronal reconst ruction images were generated using MIP and reviewed. Exam utilizes a protocol to evaluate entire cou rse of the aorta. All CT scans are performed using dose optimization technique as appropriate and may include automated exposure control or mA/KV adjustment according to patient size. FINDINGS: Aorta is normal in diameter with no dissection or other acute aortic findings. Reconstruct ion images show no significant findings. Aortic atherosclerotic calcifications are present relatively mild for age. No centrally displaced calcifications. Pulmonary arteries are normal as well. No cardiomegaly, pericardial thickening or pericardial effusio n. No mass or infiltrate in the lung parenchyma. Fibrotic stranding is present towards each lung base. N o pleural thickening, pleural effusion or pneumothorax. No abnormal mediastinal or hilar mass or lymphadenopathy seen. No chest wall mass or abnormal axillar y lymphadenopathy. No pericardial thickening or effusion. Celiac, SMA and renal arteries show no suspicious findings. Liver shows a mild fatty infiltration pat tern. Spleen shows a very mild heterogeneous enhancement pattern with numerous small low-density area s throughout the splenic parenchyma. A relatively similar pattern was seen in 2018. Direct comparison is limited due to the protocol differences. Neoplastic or other aggressive process is felt to be on likely. The spleen cannot be accurately assessed only on a CT aorta protocol study. Patient has advanced diverticulosis without diverticulitis or acute colon process. Overall no acute G I process seen. Gallbladder is absent. No biliary tree dilatation. No mass or abnormal lymphadenopat hy. No free air, free fluid or inflammatory stranding. No urinary bladder abnormality. Small fat onl y umbilical hernia is present. Prominent degenerative changes are present in the lower lumbar spine. Patient has spinal stenosis at L4-5 and probable mild foraminal stenosis. No pathologic or destructive bone process. IMPRESSION: No aneurysm, dissection or acute aortic finding. Fibrotic lung stranding present. No acute CT chest finding. No acute CT abdomen or pelvis finding identified. Nonacute findings are detailed in the body of the r eport. Patient has L4-5 central spinal stenosis. This could be a potential source for back pain and left leg radiculopathy. No pathologic bone process.
[2020-01-19] MEDS ORDERED: MORPHINE 2 MG/ML SYR ONE (18:45)
[2020-01-19 19:25] LABS: Urine Blood TRACE (NEG); Urine Glucose NEGATIVE (NEG); Urine Protein NEGATIVE (NEG); Urine Specific Gravity <1.005 (1.005-1.030)
--- NOTE | 2020-01-19 19:26 | ER ---
Nurse's Notes [facility] Name: Albania Ricks Age: 84 yrs Sex: Female : 1935 Arrival Date: 01/19/2020 Time: 15:20 Bed 7 Private MD: Diagnosis: Low back pain;Radiculopathy, lumbar region Presentation: 01/18 15:20 Chief complaint: Patient states: Low back pain that radiates into left leg for 2 days. ll1 History of the same, fall 3 years ago. Coronavirus screen: Client denies travel out of the [place] in the last 14 days. At this time, the client does not indicate any symptoms associated with coronavirus-19. Ebola Screen: Patient denies travel to an Ebola-affected area in the 21 days before illness onset. Initial Sepsis Screen: Does the patient meet any 2 criteria? HR > 90 bpm. Risk Assessment: Do you want to hurt yourself or someone else? Patient reports no desire to harm self or others. Onset of symptoms was January 18, 2020. 15:20 Method Of Arrival: EMS: [facility] 15:20 Acuity: MCKENZIE 4 ll1 16:51 Initial Sepsis Screen: Does the patient have a suspected source of infection? No. ll1 Patient's initial sepsis screen is negative. Historical: - Allergies: 15:22 Lisinopril (Cough); ll1 - PMHx: 15:22 Diabetes - NIDDM; Hyperlipidemia; Hypertension; ll1 - PSHx: 15:22 Hysterectomy; Cholecystectomy; Tonsillectomy; ll1 - Immunization history:: Adult Immunizations up to date. - Social history:: Smoking status: Patient denies any tobacco usage or history of. Patient/guardian denies using alcohol, street drugs, tobacco products. Screenin:51 Abuse screen: Denies threats or abuse. Nutritional screening: No deficits noted. ll1 Tuberculosis screening: No symptoms or risk factors identified. Fall Risk IV access (20 points). Gait- Impaired (20 pts.). Total Plascencia Fall Scale indicates Low Risk Score (25-44 pts). Fall prevention measures have been instituted. Side Rails Up X 2 Frequent Obs/Assesments occuring As available Patient and Family Educated on Fall Prevention Program and strategies. Assessment: 16:50 General: Appears in no apparent distress. Behavior is calm, cooperative, appropriate ll1 for age. Pain: Complains of pain in LOWER BACK/LEFT LEG. Neuro: Level of Consciousness is awake, alert, obeys commands, Oriented to person, place, time, situation, Appropriate for age Grid Maker are equal bilaterally Moves all extremities. Full function Gait is steady, Speech is normal, Facial symmetry appears normal. Cardiovascular: No deficits noted. Respiratory: No deficits noted. Musculoskeletal: Circulation, motion, and sensation intact. Capillary refill < 3 seconds, Range of motion: intact in all extremities, Reports pain in LOWER BACK/LEFT LEG. 17:50 Reassessment: Patient appears in no apparent distress at this time. No changes from ll1 previously documented assessment. Patient and/or family updated on plan of care and expected duration. Pain level reassessed. Patient is alert, oriented x 3, equal unlabored respirations, skin warm/dry/pink. 18:48 Reassessment: Patient appears in no apparent distress at this time. No changes from ll1 previously documented assessment. Patient and/or family updated on plan of care and expected duration. Pain level reassessed. Patient is alert, oriented x 3, equal unlabored respirations, skin warm/dry/pink. 19:15 Reassessment: Patient is alert, oriented x 3, equal unlabored respirations, skin lp1 warm/dry/pink. transit coach operator used to discuss results with patient; Patient demonstrates understanding and follow up needed; states pain relief with medication administered. Vital Signs: 15:20 BP 172 / 129; Pulse 100; Resp 18; Temp 98.4; Pulse Ox 96% on R/A; ll1 16:08 BP 168 / 142; Pulse 94; Resp 18; Pulse Ox 96% ; ll1 18:47 BP 187 / 82; Pulse 72; Resp 18; Pulse Ox 98% ; ll1 ED Course: 15:20 Patient arrived in ED. ll1 15:22 Triage completed. ll1 15:22 Arm band placed on Patient placed in an exam room, on a stretcher. ll1 15:28 Houston Vicente, JONAS is Primary Nurse. ll1 15:48 Maxim Slaughter PA is PHCP. cp 15:48 Austin Oneil MD is Attending Physician. cp 16:57 US Extremity Venous Unilateral Ltd In Process Unspecified. EDMS 17:07 Inserted saline lock: 22 gauge in left antecubital area, using aseptic technique. Blood mt collected. 18:10 CT Aorta for Dissection In Process Unspecified. EDMS 18:30 Inserted saline lock: 22 gauge in right antecubital area, using aseptic technique. ll1 19:24 Shant Murdock DO is Referral Physician. cp 19:40 No provider procedures requiring assistance completed. IV discontinued, No lp1 redness/swelling at site. Pressure dressing applied. Administered Medications: 16:21 Drug: fentaNYL (PF) 25 mcg Route: IM; Site: left gluteus; ll1 16:22 Drug: TORadol 30 mg Route: IM; Site: left gluteus; ll1 17:08 Drug: NS 0.9% 250 ml Route: IV; Rate: calculated rate; Site: left antecubital; ll1 18:47 Follow up: Response: No adverse reaction; RASS: Alert and Calm (0); IV Status: ll1 Completed infusion; IV Intake: 250ml 19:04 Follow up: Response: No adverse reaction; RASS: Alert and Calm (0); IV Status: ll1 Completed infusion; IV Intake: 250ml 18:46 Drug: TORadol - Ketorolac 15 mg Route: IVP; Site: right antecubital; ll1 19:41 Follow up: Response: Marked relief of symptoms lp1 18:46 Drug: morphine 2 mg Route: IVP; Site: right antecubital; ll1 19:41 Follow up: Response: Marked relief of symptoms lp1 Intake: 18:47 IV: 250ml; Total: 250ml. ll1 19:04 IV: 250ml; Total: 500ml. ll1 Outcome: 19:25 Discharge ordered by MD. cp 19:40 Discharged to home ambulatory, with family. lp1 19:40 Condition: good 19:40 Discharge instructions given to patient, Instructed on discharge instructions, follow up and referral plans. medication usage, Demonstrated understanding of instructions, follow-up care, medications, Prescriptions given X 3. 19:42 Patient left the ED. lp1 Signatures: Dispatcher [employer] EDMS Shanell Hassan RN RN lp1 Maxim Slaughter PA PA cp Thompson, Houston Vann mt, RN RN ll1 Corrections: (The following items were deleted from the chart) 19:05 18:47 BP 187 / 69; Pulse 105bpm; Resp 18bpm; Pulse Ox 98%; ll1 ll1
--- NOTE | 2020-01-19 19:26 | EDPHYS ---
Physician Documentation [facility] Name: Albania Ricks Age: 84 yrs Sex: Female : 1935 Arrival Date: 01/19/2020 Time: 15:20 Bed 7 Private MD: ED Physician Austin Oneil HPI: 01/18 16:05 This 84 yrs old Female presents to ER via EMS with complaints of Back Pain. cp 16:05 The patient presents with pain that is chronic, with no known mechanism of injury. The cp symptoms are located in the low back. Onset: The symptoms/episode began/occurred and became worse 2 day(s) ago. The pain radiates to the left leg. Associated signs and symptoms: Pertinent negatives: abdominal pain, constipation, dysuria, fever, incontinence, numbness, tingling, weakness. Severity of symptoms: in the emergency department the symptoms are unchanged, despite home interventions. The patient has experienced similar episodes in the past, multiple times. Historical: - Allergies: 15:22 Lisinopril (Cough); ll1 - PMHx: 15:22 Diabetes - NIDDM; Hyperlipidemia; Hypertension; ll1 - PSHx: 15:22 Hysterectomy; Cholecystectomy; Tonsillectomy; ll1 - Immunization history:: Adult Immunizations up to date. - Social history:: Smoking status: Patient denies any tobacco usage or history of. Patient/guardian denies using alcohol, street drugs, tobacco products. ROS: 16:15 Constitutional: Negative for body aches, chills, fever, poor PO intake. cp 16:15 Eyes: Negative for injury, pain, redness, and discharge. cp 16:15 Cardiovascular: Negative for chest pain, palpitations. 16:15 Respiratory: Negative for cough, shortness of breath, wheezing. 16:15 Abdomen/GI: Negative for abdominal pain, nausea, vomiting, and diarrhea, constipation, bowel incontinence. 16:15 Back: Positive for pain at rest, pain with movement. 16:15 : Negative for urinary symptoms, flank pain, difficulty urinating, bladder incontinence. 16:15 MS/extremity: Positive for pain, of the left leg, Negative for injury or acute deformity, decreased range of motion, paresthesias. 16:15 Neuro: Negative for numbness, weakness. 16:15 All other systems are negative. Exam: 16:20 Constitutional: The patient appears in no acute distress, alert, awake, cp non-diaphoretic, non-toxic, well developed, well nourished, uncomfortable. 16:20 Head/Face: Normocephalic, atraumatic. cp 16:20 Eyes: Periorbital structures: appear normal, Conjunctiva: normal, no exudate, no injection, Sclera: no appreciated abnormality, Lids and lashes: appear normal, bilaterally. 16:20 ENT: External ear(s): are unremarkable, Nose: is normal, Mouth: Lips: moist, Oral mucosa: moist, Posterior pharynx: Airway: no evidence of obstruction, patent. 16:20 Neck: ROM/movement: is normal, is supple, without pain, no range of motions limitations. 16:20 Chest/axilla: Inspection: normal, Palpation: is normal, no crepitus, no tenderness. 16:20 Cardiovascular: Rate: normal, Rhythm: regular, Edema: is not appreciated, JVD: is not appreciated. 16:20 Respiratory: the patient does not display signs of respiratory distress, Respirations: normal. 16:20 Abdomen/GI: Inspection: abdomen appears normal, Bowel sounds: active, all quadrants, Palpation: abdomen is soft and non-tender, in all quadrants. 16:20 Back: pain, that is severe, ROM is painful, with all movement, vertebral tenderness, is not appreciated. 16:20 Skin: no rash present. 16:20 Neuro: Orientation: to person, place \T\ time. Mentation: is normal, Motor: moves all fours, strength is normal, Sensation: is normal, Deep tendon reflexes are 2+ (normal) in the right patellar, right Achilles, left patellar and left Achilles. Vital Signs: 15:20 BP 172 / 129; Pulse 100; Resp 18; Temp 98.4; Pulse Ox 96% on R/A; ll1 16:08 BP 168 / 142; Pulse 94; Resp 18; Pulse Ox 96% ; ll1 18:47 BP 187 / 82; Pulse 72; Resp 18; Pulse Ox 98% ; ll1 MDM: 15:59 Patient medically screened. cp 17:00 Differential diagnosis: Abdominal Aortic Aneurysm vertebral fracture, sciatica, spinal cp stenosis, cauda equina, bulging disc. 19:24 Data reviewed: vital signs, nurses notes, lab test result(s), radiologic studies, CT cp scan. 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 Response to treatment: the patient's symptoms have markedly improved after treatment, VSS. Pain markedly improved, and as a result, I will discharge patient. 01/18 16:45 Order name: Basic Metabolic Panel; Complete Time: 18:02 01/18 18:02 Interpretation: Normal except: CL 113; GLUC 150; BUN 23; GFR 49. 01/18 16:45 Order name: CBC with Diff; Complete Time: 17:32 01/18 17:32 Interpretation: Reviewed. 01/18 16:45 Order name: Hepatic Function; Complete Time: 18:02 01/18 18:03 Interpretation: Normal except: GLOB 3.6; A/G 1.0. 01/18 16:45 Order name: Lipase; Complete Time: 18:02 cp 01/18 16:45 Order name: Urine Microscopic Only 01/18 17:27 Order name: CREATININE WHOLE BLOOD; Complete Time: 17:32 EDMS 01/18 16:01 Order name: US Extremity Venous Unilateral Ltd; Complete Time: 19:10 01/18 16:45 Order name: CT Aorta for Dissection; Complete Time: 19:10 cp 01/18 19:19 Order name: Urine Dipstick--Ancillary (enter results) mw2 01/18 16:45 Order name: IV Saline Lock; Complete Time: 17:08 01/18 16:45 Order name: Labs collected and sent; Complete Time: 17:08 01/18 16:45 Order name: Urine Dipstick-Ancillary (obtain specimen); Complete Time: 19:04 cp Administered Medications: 16:21 Drug: fentaNYL (PF) 25 mcg Route: IM; Site: left gluteus; ll1 16:22 Drug: TORadol 30 mg Route: IM; Site: left gluteus; ll1 17:08 Drug: NS 0.9% 250 ml Route: IV; Rate: calculated rate; Site: left antecubital; ll1 18:47 Follow up: Response: No adverse reaction; RASS: Alert and Calm (0); IV Status: ll1 Completed infusion; IV Intake: 250ml 19:04 Follow up: Response: No adverse reaction; RASS: Alert and Calm (0); IV Status: ll1 Completed infusion; IV Intake: 250ml 18:46 Drug: TORadol - Ketorolac 15 mg Route: IVP; Site: right antecubital; ll1 19:41 Follow up: Response: Marked relief of symptoms lp1 18:46 Drug: morphine 2 mg Route: IVP; Site: right antecubital; ll1 19:41 Follow up: Response: Marked relief of symptoms lp1 Disposition: 01/19/20 19:25 Discharged to Home. Impression: Low back pain, Radiculopathy, lumbar region. - Condition is Stable. - Discharge Instructions: Back Pain, Adult, Lumbosacral Radiculopathy, Back Exercises. - Prescriptions for Cyclobenzaprine 10 mg Oral Tablet - take 1 tablet by ORAL route every 8 hours As needed no driving while taking medication; 20 tablet. Tramadol 50 mg Oral Tablet - take 1 tablet by ORAL route every 8 hours as needed; 15 tablet. Medrol (Sean) 4 mg Oral Tablets, Dose Pack - take 1 tablet by ORAL route as directed - follow package instructions; 1 packet. - Medication Reconciliation Form, Thank You Letter, Antibiotic Education, Prescription Opioid Use form. - Follow up: Shant Murdock DO; When: 2 - 3 days; Reason: Recheck today's complaints. - Problem is new. - Symptoms have improved. Addendum: 01/21/2020 10:41 Co-signature as Attending Physician, Austin Oneil MD I agree with the assessment and k dr plan of care. Signatures: Dispatcher [employer] EDND Austin Oneil MD MD [facility] Shanell Hassan RN RN lp1 Maxim Slaughter PA PA cp Lewis, Lynsay RN RN ll1 Corrections: (The following items were deleted from the chart) 01/18 19:42 19:25 01/19/2020 19:25 Discharged to Home. Impression: Low back pain; Radiculopathy, lp1 lumbar region. Condition is Stable. Forms are Medication Reconciliation Form, Thank You Letter, Antibiotic Education, Prescription Opioid Use. Follow up: Shant Murdock; When: 2 - 3 days; Reason: Recheck today's complaints. Problem is new. Symptoms have improved. cp
[2020-01-19 19:30] LABS: Urine Bacteria <20 /HPF (<20); Urine Culture Reflex Order NOT NEEDED; Urine RBC <5 /HPF (NONE SEEN)
[2020-01-19 19:51] VITALS: TEMP 98.4
[2020-01-19 19:54] VITALS: BP 187/82; O2SAT 98
== END 2020-01-19 19:42 | disposition home or self-care (01) ==
LOC: ER 15:18
DX: M54.16 Radiculopathy, lumbar region (principal); I10 Essential (primary) hypertension; Z88.8 Allergy status to other drugs, medicaments and biological substances
CPT/HCPCS: 96365; 85025; 80048; 36415; 82565; 80076; 83690; 71275; 74175; 93971; 96375; 96372; 99284; 96366; Q9967; J3010; J2270; J7050; 81003; 81015

== ENCOUNTER 2021-05-22 18:17 | Emergency (ER) | payer OTHER ==
--- OUTSIDE RECORDS SUMMARY | 2021-05-22 18:21 | XMS REPORT | Continuity of Care Document ---
:1935 Author Organization [facility] t Address [address] [place] [address] Care Team Providers Name Role Phone Harvinder HAIR, Aly Primary Care Physician JOAN CHAO Attending Clinician Unavailable Aly BLANTON Attending Clinician Unavailable DANETTE Attending Clinician Unavailable Aly Blanton MD Attending Clinician Danette HAIR Attending Clinician Nurse, Fam Attending Clinician Unavailable Nurse, Pob Immunization Attending Clinician Unavailable Chase Batista DO Attending Clinician CHASE BATISTA Attending Clinician Unavailable FLAKITO Attending Clinician Unavailable Zach LUNA Attending Clinician Unavailable Luis A Bucio PT Attending Clinician Unavailable Zach Luna MD Attending Clinician EDMILDRED Attending Clinician Unavailable EUSEBIO Attending Clinician Unavailable Nicki Broussard MD Attending Clinician Nicki BROUSSARD Attending Clinician Unavailable JADEN Attending Clinician Unavailable JOAN CHAO Admitting Clinician Unavailable Payers Payer Name Policy Type Policy Number Effective Date Expiration Date S shannan MEDICARE PART A \T\ [id number] 2002 B 00:00:00 [facility] [id number] 2013 00:00:00 [place] [id number] 2016 00:00:00 Problems Condition Condition Condition Status Onset Resolution Last Treating Co mments Source Name Details Category Date Date Treatment Clinician Date Stage 3 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-26 ity of kidney kidney 00:00: [place] disease disease 00 Medical due to due to Branch diabetes diabetes mellitus mellitus Type 2 Type 2 Disease Active Univers diabetes diabetes 4-06 ity of mellitus mellitus 00:00: [place] without without 00 Medical complicati complicati Br anch on, on, without without long-term long-term current current use of use of insulin insulin 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 7-27 it y of sterolemia sterolemia [place] and 00 Medical hypertrigl hypertrigl Br anch yceridemia yceridemia MARCELLE-inhibi MARCELLE-inhibi Disease Active U nivers tor cough tor cough 3-03 ity of 00:00: [place] 00 Medical Branch Essential Essential Disease Active 2008-06 Uni vers hypertensi hypertensi 1-27 it y of on, benign [place], benign [place] 00 [place] Other Other Disease Active Univers symptoms symptoms 7-05 [place] of involving involving 00:[place] head [place] head and 00 Medica l neck(784.9 neck(784.9 Br anch 9) 9) Esophageal Esophageal Disease Active U nivers reflux reflux 3-08 ity of 00:00: [place] 00 Medical Branch DRY MOUTH DRY MOUTH Disease Active Uni vers 3-08 ity of 00:00: [place] 00 Medical Branch 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 Me dical r, bile r, bile Branch ducts, and ducts, and liver liver Allergies, Adverse Reactions, Alerts Allergy Allergy Status Severity Reaction(s) Onset Inactive Treating Comm ents Source Name Type Date Date Clinician NO KNOWN Drug Active Univers ALLERGIE Class ity of S [facility] Social History Social Habit Start Date Stop Date Quantity Comments Source Exposure to Not sure [facility] SARS-CoV-2 [facility] (event) Branch Tobacco use and 2021-01-12 2021-01-12 Never used Universit y of exposure 00:00:00 00:00:00 [facility] Alcohol intake 2021-01-12 2021-01-12 Current University of 00:00:00 00:00:00 non-drinker of [facility] alcohol Branch (finding) Sex [birth year] At [birth year] Universit y of 00:00:00 00:00:00 [facility] Smoking Status Start Date Stop Date Source Never smoker [facility] Medications Ordered Filled Start Stop Current Ordering Indication Dosage Frequency Signature Comments Components Source Medication Medication Date Date Medication? Clinician (SIG) Name Name METFORMIN 2020-06 Yes [id number] TAKE 1 Un arely ER 500 mg 1-23 TABLET BY ity o f 24 hr 00:00: MOUTH [place] tablet 00 TWICE Medical DAILY WITH Branch MEALS METFORMIN 2020-06 Yes [id number] TAKE 1 Un arely ER 500 mg 1-23 TABLET BY ity o f 24 hr 00:00: MOUTH [place] tablet 00 TWICE Medical DAILY WITH Branch MEALS docusate Yes 100mg Take 100 Univ ers (COLACE) 7-30 mg by ity of 100 mg 16:44: mouth once [place] capsule 56 daily as Medical needed for Branch Constipati on. Bepotastine Yes Place in U nivers Besilate 7-30 each eye. ity of (BEPREVE) 16:44: [place] 1.5 % Drop 44 Medical Branch Carboxymeth Yes 1[drp] Place 1 U nivers ylcellulose 7-30 Drop in ity o f Sodium 16:42: each eye 2 [place] (REFRESH 36 (two) Medical TEARS) 0.5 times Branch % Drop daily. docusate Yes 100mg Take 100 Univ ers (COLACE) 7-30 mg by ity of 100 mg 11:44: mouth once [place] capsule 56 daily as Medical needed for Branch Constipati on. docusate Yes 100mg Take 100 Univ ers (COLACE) 7-30 mg by ity of 100 mg 11:44: mouth once [place] capsule 56 daily as Medical needed for Branch Constipati on. docusate Yes 100mg Take 100 Univ ers (COLACE) 7-30 mg by ity of 100 mg 11:44: mouth once [place] capsule 56 daily as Medical needed for Branch Constipati on. docusate Yes 100mg Take 100 Univ ers (COLACE) 7-30 mg by ity of 100 mg 11:44: mouth once [place] capsule 56 daily as Medical needed for Branch Constipati on. Bepotastine Yes Place in U nivers Besilate 7-30 each eye. ity of (BEPREVE) 11:44: [place] 1.5 % Drop 44 Medical Branch Bepotastine 2020-[address] in U nivers Besilate 7-30 each eye. ity of (BEPREVE) 11:44: [place] 1.5 % Drop 44 Medical Branch Bepotastine 2020-[address] in U nivers Besilate 7-30 each eye. ity of (BEPREVE) 11:44: [place] 1.5 % Drop 44 Medical Branch Bepotastine 2020-[address] in U nivers Besilate 7-30 each eye. ity of (BEPREVE) 11:44: [place] 1.5 % Drop 44 Medical Branch Carboxymeth 2020-0 Yes 1[drp] Place 1 U nivers ylcellulose 7-30 Drop in ity o f Sodium 11:42: each eye 2 [place] (REFRESH 36 (two) Medical TEARS) 0.5 times Branch % Drop daily. Carboxymeth 2020-0 Yes 1[drp] Place 1 U nivers ylcellulose 7-30 Drop in ity o f Sodium 11:42: each eye 2 [place] (REFRESH 36 (two) Medical TEARS) 0.5 times Branch % Drop daily. Carboxymeth 2020-0 Yes 1[drp] Place 1 U nivers ylcellulose 7-30 Drop in ity o f Sodium 11:42: each eye 2 [place] (REFRESH 36 (two) Medical TEARS) 0.5 times Branch % Drop daily. Carboxymeth 2020-0 Yes 1[drp] Place 1 U nivers ylcellulose 7-30 Drop in ity o f Sodium 11:42: each eye 2 [place] (REFRESH 36 (two) Medical TEARS) 0.5 times Branch % Drop daily. SIMBRINZA 2020-0 Yes Univers 1-0.2 % 7-22 ity of ophthalmic 00:00: [place] drops 00 Medical Branch SIMBRINZA 2020-0 Yes Univers 1-0.2 % 7-22 ity of ophthalmic 00:00: [place] drops 00 Medical Branch SIMBRINZA 2020-0 Yes Univers 1-0.2 % 7-22 ity of ophthalmic 00:00: [place] drops 00 Medical Branch SIMBRINZA 2020-0 Yes Univers 1-0.2 % 7-22 ity of ophthalmic 00:00: [place] drops 00 Medical Branch SIMBRINZA 2020-0 Yes Univers 1-0.2 % 7-22 ity of ophthalmic 00:00: [place] drops 00 Medical Branch omeprazole 2020-0 Yes [id number] 20mg Take 1 Univers 20 mg 6-21 capsule by ity of capsule 00:00: mouth [place] 00 daily. Medical Branch omeprazole 2020-0 Yes [id number] 20mg Take 1 Univers 20 mg 6-21 capsule by ity of capsule 00:00: mouth [place] 00 daily. Medical Branch omeprazole 2020-0 Yes [id number] 20mg Take 1 Univers 20 mg 6-21 capsule by ity of capsule 00:00: mouth [place] 00 daily. Medical Branch omeprazole 2020-0 Yes [id number] 20mg Take 1 Univers 20 mg 6-21 capsule by ity of capsule 00:00: mouth [place] 00 daily. Medical Branch omeprazole 2020-0 Yes [id number] 20mg Take 1 Univers 20 mg 6-21 capsule by ity of capsule 00:00: mouth [place] 00 daily. Medical Branch blood sugar Yes [id number] USE STRIP Univers diagnostic 6-11 TO CHECK ity o f (ONETOUCH 00:00: GLUCOSE [place] VERIO TEST 00 ONCE DAILY Med ical STRIPS) Branch strip blood sugar 2020- Yes [id number] USE STRIP Univers diagnostic 6-11 TO CHECK ity o f (ONETOUCH 00:00: GLUCOSE [place] VERIO TEST 00 ONCE DAILY Med ical STRIPS) Branch strip blood sugar 2020- Yes [id number] USE STRIP Univers diagnostic 6-11 TO CHECK ity o f (ONETOUCH 00:00: GLUCOSE [place] VERIO TEST 00 ONCE DAILY Med ical STRIPS) Branch strip blood sugar 2020- Yes [id number] USE STRIP Univers diagnostic 6-11 TO CHECK ity o f (ONETOUCH 00:00: GLUCOSE [place] VERIO TEST 00 ONCE DAILY Med ical STRIPS) Branch strip blood sugar 2020- Yes [id number] USE STRIP Univers diagnostic 6-11 TO CHECK ity o f (ONETOUCH 00:00: GLUCOSE [place] VERIO TEST 00 ONCE DAILY Med ical STRIPS) Branch strip metformin 2020-0 Yes [id number] 500mg Take 1 U nivers ER 500 mg 5-03 tablet by ity o f 24 hr 00:00: mouth 2 [place] tablet 00 (two) Medical times Branch daily with meals. metformin 2020-0 Yes [id number] 500mg Take 1 U nivers ER 500 mg 5-03 tablet by ity o f 24 hr 00:00: mouth 2 [place] tablet 00 (two) Medical times Branch daily with meals. metformin 2020-0 Yes [id number] 500mg Take 1 U nivers ER 500 mg 5-03 tablet by ity o f 24 hr 00:00: mouth 2 [place] tablet 00 (two) Medical times Branch daily with meals. metformin 2020-0 2020- No [id number] 500mg Take 1 Univers ER 500 mg 5-03 11-23 tablet by ity of 24 hr 00:00: 00:00 mouth 2 [place] tablet 00 :00 (two) Medical times Branch daily with meals. rosuvastati 0 Yes [id number] 40mg Take 1 Univers n (CRESTOR) 3-11 tablet by ity of 40 mg 00:00: mouth at [place] tablet 00 bedtime. Medical Branch losartan 50 2020-0 Yes [id number] 50mg Take 1 U nivers mg tablet 3-11 tablet by ity o f 00:00: mouth [place] 00 daily. Medical Branch rosuvastati 0 Yes [id number] 40mg Take 1 Univers n (CRESTOR) 3-11 tablet by ity of 40 mg 00:00: mouth at [place] tablet 00 bedtime. Medical Branch losartan 50 0 Yes [id number] 50mg Take 1 U nivers mg tablet 3-11 tablet by ity o f 00:00: mouth [place] 00 daily. Medical Branch rosuvastati 0 Yes [id number] 40mg Take 1 Univers n (CRESTOR) 3-11 tablet by ity of 40 mg 00:00: mouth at [place] tablet 00 bedtime. Medical Branch losartan 50 2020-0 Yes [id number] 50mg Take 1 U nivers mg tablet 3-11 tablet by ity o f 00:00: mouth [place] 00 daily. Medical Branch rosuvastati 2020-0 Yes [id number] 40mg Take 1 Univers n (CRESTOR) 3-11 tablet by ity of 40 mg 00:00: mouth at [place] tablet 00 bedtime. Medical Branch losartan 50 2020-0 Yes [id number] 50mg Take 1 U nivers mg tablet 3-11 tablet by ity o f 00:00: mouth [place] 00 daily. Medical Branch rosuvastati 2021-0 Yes [id number] 40mg Take 1 Univers n (CRESTOR) 3-11 tablet by ity of 40 mg 00:00: mouth at [place] tablet 00 bedtime. Medical Branch losartan 50 Yes [id number] 50mg Take 1 U nivers mg tablet 3-11 tablet by ity o f 00:00: mouth [place] 00 daily. Medical Branch ONE TOUCH Yes [id number] Use as U nivers DELICA 33 5-14 directed ity of gauge Misc 00:00: [place] test [place] 00 blood Medical sugar once Branch daily. Dx E11.9 ONE TOUCH Yes [id number] Use as U nivers DELICA 33 5-14 directed ity of gauge Misc 00:00: [place] test [place] 00 blood Medical sugar once Branch daily. Dx E11.9 ONE TOUCH Yes [id number] Use as U nivers DELICA 33 5-14 directed ity of gauge Misc 00:00: to test [place] 00 blood Medical sugar once Branch daily. Dx E11.9 ONE TOUCH Yes [id number] Use as U nivers DELICA 33 5-14 directed ity of gauge Misc 00:00: [place] test [place] 00 blood Medical sugar once Branch daily. Dx E11.9 ONE TOUCH Yes [id number] Use as U nivers DELICA 33 5-14 directed ity of gauge Misc 00:00: to test [place] 00 blood Medical sugar once Branch daily. Dx E11.9 latanoprost Yes [id number] 1[drp] Place 1 Univers 0.005 % 4-30 Drop in ity of ophthalmic 00:00: [place] eyes [place] drops 00 at Medical bedtime. Branch latanoprost Yes [id number] 1[drp] Place 1 Univers 0.005 % 4-30 [id number] Drop in ity of ophthalmic 00:00: [place] eyes [place] drops 00 at Medical bedtime. Branch latanoprost Yes [id number] 1[drp] Place 1 Univers 0.005 % 4-30 [id number] Drop in ity of ophthalmic 00:00: both eyes [place] drops 00 at Medical bedtime. Branch latanoprost Yes [id number] 1[drp] Place 1 Univers 0.005 % 4-30 [id number] Drop in ity of ophthalmic 00:00: [place] eyes [place] drops 00 at Medical bedtime. Branch latanoprost 2019-0 Yes [id number] 1[drp] Place 1 Univers 0.005 % 4-30 [id number] Drop in ity of ophthalmic 00:00: [place] eyes [place] drops 00 at Medical bedtime. Branch Immunizations Ordered Filled Immunization Date Status Comments [facility] e Immunization Name Name Influenza Virus 2021-04-23 Completed Universit y of Vaccine,quad 00:00:00 [place] Medica l Im,preserve Free [place] 65+ SARS-COV-2 COVID-19 2021-04-23 Completed Unive rsity of MAXI/J&J VACCINE 00:00:00 [facility] Influenza Virus 2021-04-23 Completed Universit y of Vaccine,quad 00:00:00 [place] Medica l Im,preserve Free [place] 65+ SARS-COV-2 COVID-19 2021-04-23 Completed Unive rsity of MAXI/J&J VACCINE 00:00:00 [facility] Influenza Virus 2021-04-23 Completed Universit y of Vaccine,quad 00:00:00 [place] Medica l Im,preserve Free [place] 65+ SARS-COV-2 COVID-19 2021-04-23 Completed Unive rsity of MAXI/J&J VACCINE 00:00:00 [facility] Influenza Virus 2021-04-23 Completed Universit y of Vaccine,quad 00:00:00 [place] Medica l Im,preserve Free [place] 65+ SARS-COV-2 COVID-19 2021-04-23 Completed Unive rsity of MAXI/J&J VACCINE 00:00:00 [facility] SARS-COV-2 COVID-19 2020-11-23 Completed Unive rsity of MAXI/J&J VACCINE 00:00:00 [facility] SARS-COV-2 COVID-19 2020-11-23 Completed Unive rsity of MAXI/J&J VACCINE 00:00:00 [facility] SARS-COV-2 COVID-19 2020-11-23 Completed Unive rsity of MAXI/J&J VACCINE 00:00:00 [facility] SARS-COV-2 COVID-19 2020-11-23 Completed Unive rsity of MAXI/J&J VACCINE 00:00:00 [facility] Influenza High Dose 2020-03-16 Completed Unive rsity of 00:00:00 [facility] Influenza High Dose 2020-03-16 Completed Unive rsity of 00:00:00 [facility] Influenza High Dose 2020-03-16 Completed Unive rsity of 00:00:00 [facility] Influenza High Dose 2020-03-16 Completed Unive rsity of 00:00:00 [facility] Influenza High Dose 2020-03-16 Completed Unive rsity of 00:00:00 [facility] Influenza High Dose 2019-03-22 Completed Unive rsity of 00:00:00 [facility] Influenza High Dose 2019-03-22 Completed Unive rsity of 00:00:00 [facility] Influenza High Dose 2019-03-22 Completed Unive rsity of 00:00:00 [facility] Influenza High Dose 2019-03-22 Completed Unive rsity of 00:00:00 [facility] Influenza High Dose 2019-03-22 Completed Unive rsity of 00:00:00 [facility] Influenza High Dose 2018-07-07 Completed Unive rsity of 00:00:00 [facility] Influenza High Dose 2018-07-07 Completed Unive rsity of 00:00:00 [facility] Influenza High Dose 2018-07-07 Completed Unive rsity of 00:00:00 [facility] Influenza High Dose 2018-07-07 Completed Unive rsity of 00:00:00 [facility] Influenza High Dose 2018-07-07 Completed Unive rsity of 00:00:00 [facility] Influenza High Dose 2017-05-01 Completed Unive rsity of 00:00:00 [facility] Influenza High Dose 2017-05-01 Completed Unive rsity of 00:00:00 [facility] Influenza High Dose 2017-05-01 Completed Unive rsity of 00:00:00 [facility] Influenza High Dose 2017-05-01 Completed Unive rsity of 00:00:00 [facility] Influenza High Dose 2017-05-01 Completed Unive rsity of 00:00:00 [facility] Pneumococcal 13 2016-09-13 Completed Universit y of Conjugate, PCV13 00:00:00 [place] Me dical (Prevnar 13) Branch Pneumococcal 13 2016-09-13 Completed Universit y of Conjugate, PCV13 00:00:00 [place] Me dical (Prevnar 13) Branch Pneumococcal 13 2016-09-13 Completed Universit y of Conjugate, PCV13 00:00:00 [facility] dical (Prevnar 13) Branch Pneumococcal 13 2016-09-13 Completed Universit y of Conjugate, PCV13 00:00:00 [facility] dical (Prevnar 13) Branch Pneumococcal 13 2016-09-13 Completed Universit y of Conjugate, PCV13 00:00:00 [facility] dical (Prevnar 13) Branch Influenza High Dose 2016-04-02 Completed Unive rsity of 00:00:00 [facility] Influenza High Dose 2016-04-02 Completed Unive rsity of 00:00:00 [facility] Influenza High Dose 2016-04-02 Completed Unive rsity of 00:00:00 [facility] Influenza High Dose 2016-04-02 Completed Unive rsity of 00:00:00 [facility] Influenza High Dose 2016-04-02 Completed Unive rsity of 00:00:00 [facility] Influenza High Dose 2015-04-24 Completed Unive rsity of 00:00:00 [facility] Influenza High Dose 2015-04-24 Completed Unive rsity of 00:00:00 [facility] Influenza High Dose 2015-04-24 Completed Unive rsity of 00:00:00 [facility] Influenza High Dose 2015-04-24 Completed Unive rsity of 00:00:00 [facility] Influenza High Dose 2015-04-24 Completed Unive rsity of 00:00:00 [facility] Influenza High Dose 2010-04-27 Completed Unive rsity of 00:00:00 [facility] Pneumococcal 2010-04-27 Completed University o f Polysaccharide, 00:00:00 [place] Med ical PPSV23 (PNEUMOVAX) Branch Influenza High Dose 2010-04-27 Completed Unive rsity of 00:00:00 [facility] Pneumococcal 2010-04-27 Completed University o f Polysaccharide, 00:00:00 [place] Med ical PPSV23 (PNEUMOVAX) Branch Influenza High Dose 2010-04-27 Completed Unive rsity of 00:00:00 [facility] Pneumococcal 2010-04-27 Completed University o f Polysaccharide, 00:00:00 [place] Med ical PPSV23 (PNEUMOVAX) Branch Influenza High Dose 2010-04-27 Completed Unive rsity of 00:00:00 [facility] Pneumococcal 2010-04-27 Completed University o f Polysaccharide, 00:00:00 [place] Med ical PPSV23 (PNEUMOVAX) Branch Influenza High Dose 2010-04-27 Completed Unive rsity of 00:00:00 [facility] Pneumococcal 2010-04-27 Completed University o f Polysaccharide, 00:00:00 [place] Med ical PPSV23 (PNEUMOVAX) Branch Influenza Virus 2009-05-02 Completed Universit y of Vaccine 00:00:00 [facility] Influenza Virus 2009-05-02 Completed Universit y of Vaccine 00:00:00 [facility] Influenza Virus 2009-05-02 Completed Universit y of Vaccine 00:00:00 [facility] Influenza Virus 2009-05-02 Completed Universit y of Vaccine 00:00:00 [facility] Influenza Virus 2009-05-02 Completed Universit y of Vaccine 00:00:00 [facility] Procedures Procedure Date / Time Performed Performing Clinician Sourc e SARS-COV-2 COVID-19 2021-04-23 18:17:22 Doctor Unassigned, No Un iversity of [place] VACCINE,0.5ML,IM Name Medical Branch (MAXI/J&J) FLU 2021-04-23 17:58:25 Doctor Unassigned, No Univer sity [facility] [place] VACC([id number]),65+YR Name Medical anch ,0.5 ML,IM,ADJUVANTED,QUAD (FLUAD) SARS-COV-2 COVID-19 2021-04-23 17:57:30 Doctor Unassigned, No Un iversity of [place] VACCINE,0.5ML,IM Name Medical [place] (MAXI/J&J) Encounters Start End Encounter Admission Attending Care Care Encounter Source Date/Time Date/Time Type Type Clinicians Facility Department ID 2021-04-12 Outpatient Dawood CHAO [facility] ALE [id number] Univers 11:07:39 MANASA [facility] 2021-08-24 2021-08-24 Outpatient Dawood BLANTON [facility] [id number] Univers 14:20:00 14:20:00 NIECY [id number] [facility] 2021-08-24 2021-08-24 Outpatient Dawood BLANTON [facility] [id number] Univers 14:20:00 14:20:00 NIECY [facility] 2021-07-16 2021-07-16 Outpatient R BRANDOROSAADALID, [facility] [id number] Univers 13:30:00 13:30:00 ADRIANNA [id number] [facility] 2021-05-22 2021-05-22 Outpatient R HARVINDER [facility] [id number] Univers 08:00:00 08:00:00 NIECY [id number] [facility] 2021-05-22 2021-05-22 Outpatient R HARVINDER [facility] [id number] Univers 08:00:00 08:00:00 NIECY [facility] 2021-05-18 2021-05-18 [id number] Univers 09:20:00 09:20:00 NIECY [id number] [facility] 2021-05-15 2021-05-15 [facility] [id number] Univers 00:00:00 00:00:00 Niecy NIEVES [id number] ity of [place] [id number] PROF[place] [phone] Mi dical [facility] 044 [facility] 2021-05-07 2021-05-07 Refill [facility] .[id number] Univers 00:00:00 00:00:00 Adrianna NIEVES [id number] i ty of [facility] [id number] [phone] Mi dical NAL 220 [facility] 2021-04-23 2021-04-23 Outpatient R CIRORHEAROSAADALID [facility] [id number] Univers 15:00:00 15:00:00 ADRIANNA [id number] [facility] 2021-04-23 2021-04-23 Nurse Nurse, [facility] [id number] Univers 11:47:34 12:07:34 Visit Niecy Bl[place] [id number] ity of [place] [id number] [phone] Mi dical NAL 044 [facility] 2021-04-23 2021-04-23 Outpatient R DANETTE [facility] [id number] Univers 12:00:00 12:00:00 ADRIANNA [facility] 2021-04-23 2021-04-23 Imm/Inj Nurse, Adc Pob Immunization [facility] [id number] Univers 11:51:28 11:51:36 Visit Farshad Batista [id number] .[id number] ity [facility] [id number] [phone] Mi dical NAL 421 [facility] 2021-04-23 2021-04-23 Outpatient R LYNNE [facility] [id number] Univers 11:40:00 11:51:36 [facility] 2021-04-23 2021-04-23 Outpatient R LYNNE [facility] [id number] Univers 11:40:00 11:40:00 [facility] 2021-04-23 2021-04-23 Outpatient R LYNNE [facility] [id number] Univers 11:40:00 11:40:00 [facility] 2021-02-27 2021-02-27 [facility] [id number] Univers 13:00:00 13:00:00 TOMI [id number] [facility] 2021-02-12 2021-02-12 Outpatient R CHERYL [facility] [id number] Univers 09:20:00 14:09:23 SUKI [facility] 2021-02-12 2021-02-12 Ancillary Fabienne Bailey [facility] 1 .[id number] Univers 09:08:54 09:48:54 Visit Suki Luna [id number] ity [facility] [id number] Profess[place] [phone] Mi dical nal 179 [facility] 2021-02-12 2021-02-12 Outpatient [facility] [id number] Univers 09:20:00 09:20:00 [id number] ity [facility] 2021-02-05 2021-02-05 Outpatient [facility] [id number] Univers 09:00:00 09:00:00 [id number] ity [facility] 2021-01-30 2021-01-30 Outpatient R [facility] [id number] Univers 08:20:00 08:20:00 [id number] ity [facility] 2021-01-22 2021-01-22 Outpatient R [facility] [id number] Univers 14:20:00 14:20:00 [id number] ity [facility] [facility] 2021-01-12 2021-01-12 Outpatient R HARVINDER [facility] [id number] Univers 10:40:00 10:40:00 NIECY [id number] ity [facility] 2021-01-12 2021-01-12 Outpatient R HARVINDER [facility] [id number] Univers 10:40:00 10:40[facility]03 2021-01-03 Outpatient R [facility] [id number] Univers 09:45:00 09:45:00 [id number] ity [facility] 2021-01-03 2021-01-03 Outpatient R HARVINDER [facility] [id number] Univers 09:45:00 09:45:00 NIECY [facility] 2020-12-04 2020-12-04 Outpatient R HARVINDER [facility] [id number] Univers 09:40:00 09:40:00 NIECY [id number] ity [facility] 2020-12-04 2020-12-04 Outpatient R HARVINDER [facility] [id number] Univers 09:40:00 09:40:00 NIECY ity [facility] 2020-11-09 2020-11-09 Outpatient R FLAKITO, [facility] [id number] Univers 13:00:00 14:14:30 TOMI ity [facility] 2020-11-09 2020-11-09 Outpatient R FLAKITO, [facility] [id number] Univers 13:00:00 13:00:00 TOMI [id number] [facility] 2020-10-16 2020-10-16 Outpatient R DANETTE, [facility] [id number] Univers 11:30:00 11:30:00 ADRIANNA [id number] [facility] 2020-10-16 2020-10-16 Outpatient R DANETTE, [facility] [id number] Univers 11:30:00 11:30:00 ADRIANNA [facility] 2020-09-08 2020-09-08 Outpatient R CANDIE, [facility] [id number] Univers 09:20:00 09:20:00 FAREED [id number] [facility] 2020-09-08 2020-09-08 [id number] Univers 09:20:00 09:20:00 FAREED [facility] 2020-08-29 2020-08-29 Outpatient R [facility] [id number] Univers 09:30:00 09:30:00 [id number] [facility] 2020-08-29 2020-08-29 Outpatient R HARVINDER, [facility] [id number] Univers 09:30:00 09:30:00 NIECY [facility] 2020-08-24 2020-08-24 Outpatient R EUSEBIO, [facility] [id number] Univers 11:00:00 11:00:00 GLADIS [id number] ity o f [facility] 2020-08-24 2020-08-24 [facility] [id number] Univers 11:00:00 11:00:00 GLADIS ity o f [facility] 2019-12-21 2019-12-21 [facility] [id number] 00:00:00 00:00:00 Vicki RAMIREZ [id number] CARE [id number] FLORENCIO [id number] 2019-11-05 2019-11-05 Outpatient Dawood BROUSSARD [facility] [id number] Univers 13:30:00 13:30:00 VICKI [id number] linden [facility] 2019-11-05 2019-11-05 Outpatient Dawood BROUSSARD [facility] [id number] Univers 13:30:00 13:30:00 VICKI linden [facility] 2019-08-03 2019-08-03 Outpatient Dawood BROUSSARD [facility] [id number] Univers 13:00:00 14:01:03 VICKI [facility] 2019-07-08 2019-07-08 Outpatient Dawood CHAO [facility] [id number] Univers 07:02:02 09:37:00 MANASA linden [facility] 2019-06-29 2019-06-29 Outpatient Dawood CHAO [facility] [id number] Univers 16:45:00 16:45:00 MANASA linden [facility] 2019-02-24 2019-02-24 Outpatient Dawood STANLEY [facility] [id number] Univers 09:00:00 09:00:00 TEOFILO falcon [facility] 2018-09-24 2018-09-24 Outpatient Dawood BROUSSARD [facility] [id number] Univers 07:45:00 07:45:00 [facility] Results This patient has no known results.
[2021-05-22] MEDS ORDERED: ONDANSETRON 4 MG/2 ML VIAL ONE (19:41)
[2021-05-22] MEDS ORDERED: FAMOTIDINE 20 MG/2 ML VIAL IV ONE (19:56)
[2021-05-22] MEDS ORDERED: MORPHINE 2 MG/ML SYR ONE ×3 (19:56→23:59)
[2021-05-22] MEDS ORDERED: NA CHLORIDE 0.9% 1,000 ML ONE (19:56)
[2021-05-22 20:23] LABS: Basophils % 0.2 % (0-1.3); Hematocrit 37.9 % (36.0-45.0); Lymphocytes % 8.6 % (15.3-44.8); MPV 7.6 fL (7.6-11.3); RBC Red Blood Cell Count 4.08 M/uL (3.86-4.86)
[2021-05-22 20:38] LABS: ALT/SGPT 16 U/L (12-78); AST/SGOT 13 U/L (15-37); Albumin 3.3 g/dL (3.4-5.0); Alkaline Phosphatase 100 U/L (45-117); BUN Blood Urea Nitrogen 26 mg/dL (7-18); Bicarbonate 17 mmol/L (21-32); Bilirubin Direct < 0.1 mg/dL (0-0.2); Bilirubin Total 0.3 mg/dL (0.2-1.0); Glucose Level 223 mg/dL (74-106); Lipase 110 U/L (73-393); Potassium 4.5 mmol/L (3.5-5.1); Protein, Total 7.7 g/dL (6.4-8.2); Sodium Level 141 mmol/L (136-145)
[2021-05-22 21:04] LABS: Blood Morphology Comment NOT SEEN (NOT SEEN); Platelet Estimate ADEQ
--- NOTE | 2021-05-22 21:08 | RAD REPORT ---
EXAM DESCRIPTION: CT - Abdomen Pelvis W Contrast - 05/22/2021 8:53 pm CLINICAL HISTORY: Abdominal pain/left lower quadrant pain COMPARISON: 2017 TECHNIQUE: Computed axial tomography of the abdomen pelvis was obtained. 100 cc Isovue-300 was admin istered intravenously. Oral contrast was not requested which limits evaluation of bowel. All CT scans are performed using dose optimization technique as appropriate and may include automated exposure control or mA/KV adjustment according to patient size. FINDINGS: Moderate left hydronephrosis with perirenal stranding. Left ureter is dilated. 6 millimete r calculus within the distal left ureter. Cholecystectomy 20 millimeter complex cyst liver. Splenic granulomata. Pancreas, adrenals and right kidney are unremarkable. Diverticula stem from the colon without evidence of diverticulitis. Hysterectomy. Small umbilical hernia. 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
[2021-05-22] MEDS ORDERED: CEFTRIAXONE 1000 MG/VIAL ONE (22:30)
[2021-05-22] MEDS ORDERED: NA CHLORIDE 0.9% 50 ML ONE (22:30)
[2021-05-22 22:37] LABS: Urine Blood 2+ (Negative); Urine Glucose Trace (Negative); Urine Protein Negative (Negative); Urine Specific Gravity 1.015 (1.005-1.030); Urine pH 5.5 (5.0-7.0)
[2021-05-22 23:42] LABS: Urine Bacteria <20 /HPF (<20); Urine Yeast FEW (NONE SEEN)
--- NOTE | 2021-05-22 23:57 | ER ---
Nurse's Notes [facility] Name: Albania Ricks Age: 86 yrs Sex: Female : 1935 Arrival Date: 05/22/2021 Time: 18:18 Bed 12 Private MD: Diagnosis: Ureterolithiasis, Left Presentation: 05/22 18:19 Chief complaint: Patient states: abd pain, n/v X 1 day, vomited X 5 today but has had iw no episodes in several hours, pain is in the center abd radiating to back , hx of diabetes. Coronavirus screen: vomiting. Ebola Screen: Patient negative for fever greater than or equal to 101.5 degrees Fahrenheit, and additional compatible Ebola Virus Disease symptoms Patient denies exposure to infectious person. Patient denies travel to an Ebola-affected area in the 21 days before illness onset. No symptoms or risks identified at this time. Initial Sepsis Screen: Does the patient meet any 2 criteria? No. Patient's initial sepsis screen is negative. Does the patient have a suspected source of infection? No. Patient's initial sepsis screen is negative. Risk Assessment: Do you want to hurt yourself or someone else? Patient reports no desire to harm self or others. Onset of symptoms was May 22, 2021. 18:19 Method Of Arrival: EMS: [facility] iw 18:19 Acuity: MCKENZIE 3 iw Historical: - Allergies: 18:21 Lisinopril (Cough); iw - PMHx: 18:21 Diabetes - NIDDM; Hyperlipidemia; Hypertension; iw - Social history:: Smoking status: unknown. Screenin/08 00:10 Abuse screen: Denies threats or abuse. Nutritional screening: No deficits noted. as6 Tuberculosis screening: No symptoms or risk factors identified. Fall Risk None identified. Assessment: 05/22 19:43 General: Appears uncomfortable, Behavior is cooperative, restless. Pain: Complains of as6 pain in left lower quadrant Pain radiates to posterior aspect of left lateral abdomen and anterior aspect of left lateral abdomen. Neuro: Level of Consciousness is awake, alert, obeys commands, Oriented to person, place, time, situation. Cardiovascular: Capillary refill < 3 seconds Patient's skin is warm and dry. Respiratory: Airway is patent Trachea midline Respiratory effort is even, unlabored, Respiratory pattern is regular, symmetrical. GI: Abdomen is distended, Pt is actively vomiting bile, Abdomen is tender to palpation in left lower quadrant. Derm: Skin is intact, is healthy with good turgor. Vital Signs: 19:45 BP 190 / 96; Pulse 102; Resp 20 S; Pulse Ox 98% on R/A; as6 08 00:06 BP 160 / 83; Pulse 77; Resp 18 S; Pulse Ox 99% on R/A; as6 ED Course: 05/22 18:18 Patient arrived in ED. iw 18:21 Triage completed. iw 19:30 Homar Galeano MD is Attending Physician. mh7 19:33 Wagner Richards, JONAS is Primary Nurse. as6 19:47 Inserted saline lock: 22 gauge in left forearm, using aseptic technique. Blood as6 collected. 20:53 CT Abd/Pelvis - IV Contrast Only In Process Unspecified. EDMS 23:55 John Kingsley MD is Referral Physician. [facility] 05/23 00:11 No provider procedures requiring assistance completed. IV discontinued, intact, as6 bleeding controlled, No redness/swelling at site. Pressure dressing applied. 00:11 Arm band placed on. as6 00:12 Bed in low position. Call light in reach. Side rails up X2. Adult w/ patient. Pulse ox as6 on. NIBP on. Administered Medications: 05/22 19:48 Drug: Zofran (Ondansetron) 4 mg Route: IVP; Site: left forearm; as6 20:00 Drug: NS 0.9% 1000 ml Route: IV; Rate: 1000 ml; Site: left forearm; as6 21:18 Follow up: Response: No adverse reaction; IV Status: Completed infusion; IV Intake: as6 1000ml 20:00 Drug: morphine 2 mg Route: IVP; Site: left forearm; as6 20:00 Drug: Pepcid (famotidine) 20 mg Route: IVP; Site: left forearm; as6 21:19 Follow up: Response: No adverse reaction as6 21:01 Drug: morphine 2 mg Route: IVP; Site: left forearm; as6 21:19 Follow up: Response: No adverse reaction; RASS: Alert and Calm (0) as6 22:35 Drug: Rocephin (cefTRIAXone) 1 grams Route: IV; Rate: per protocol; Site: left forearm; as6 05/23 00:13 Follow up: Response: No adverse reaction; IV Status: Completed infusion; IV Intake: [id number] 00:00 Drug: morphine 2 mg Route: IVP; Site: left forearm; as6 00:12 Follow up: Response: No adverse reaction; RASS: Alert and Calm (0) as6 Intake: 05/22 21:18 IV: 1000ml; Total: 1000ml. as6 05/23 00:13 IV: 50ml; Total: 1050ml. as6 Outcome: 05/22 23:56 Discharge ordered by MD. taylor 05/23 00:11 Discharged to home ambulatory, with family. as6 Condition: stable Discharge instructions given to patient, family, Instructed on discharge instructions, follow up and referral plans. medication usage, Demonstrated understanding of instructions, follow-up care, medications, Prescriptions given X 4. 00:13 Patient left the ED. as6 Signatures: Dispatcher [employer] EDRafaela Alvarado RN RN iw Homar Galeano MD MD [facility] Wagner Richards RN RN as6
--- NOTE | 2021-05-22 23:57 | EDPHYS ---
Physician Documentation [facility] Name: Albania Ricks Age: 86 yrs Sex: Female : 1935 Arrival Date: 05/22/2021 Time: 18:18 Bed 12 Private MD: ED Physician Homar Galeano HPI: 05/22 20:19 This 86 yrs old Female presents to ER via EMS with complaints of Abdominal mh7 Pain. 20:19 The patient presents with abdominal pain in the left lower quadrant. Onset: The mh7 symptoms/episode began/occurred this morning, today. The symptoms radiate to the left flank. Associated signs and symptoms: Pertinent positives: nausea and vomiting, Pertinent negatives: anorexia, blood in stools, chest pain, constipation, diarrhea, dysuria, fever, headache, hematuria, palpitations, shortness of breath, vaginal discharge, vomiting blood. The symptoms are described as intermittent, vague, waxing/waning. Modifying factors: The symptoms are alleviated by nothing, the symptoms are aggravated by nothing. Severity of pain: At its worst the pain was moderate today, in the emergency department the pain is unchanged. Historical: - Allergies: 18:21 Lisinopril (Cough); iw - PMHx: 18:21 Diabetes - NIDDM; Hyperlipidemia; Hypertension; iw - Social history:: Smoking status: unknown. ROS: 20:19 Constitutional: Negative for fever, chills, and weight loss, Eyes: Negative for injury, mh7 pain, redness, and discharge, ENT: Negative for injury, pain, and discharge, Neck: Negative for injury, pain, and swelling, Cardiovascular: Negative for chest pain, palpitations, and edema, Respiratory: Negative for shortness of breath, cough, wheezing, and pleuritic chest pain, : Negative for injury, bleeding, discharge, and swelling, MS/Extremity: Negative for injury and deformity, Skin: Negative for injury, rash, and discoloration, Neuro: Negative for headache, weakness, numbness, tingling, and seizure, Psych: Negative for depression, anxiety, suicide ideation, homicidal ideation, and hallucinations, Allergy/Immunology: Negative for hives, rash, and allergies, Endocrine: Negative for neck swelling, polydipsia, polyuria, polyphagia, and marked weight changes, Hematologic/Lymphatic: Negative for swollen nodes, abnormal bleeding, and unusual bruising. Exam: 20:19 Head/Face: Normocephalic, atraumatic. Eyes: Pupils equal round and reactive to light, mh7 extra-ocular motions intact. Lids and lashes normal. Conjunctiva and sclera are non-icteric and not injected. Cornea within normal limits. Periorbital areas with no swelling, redness, or edema. Neck: Trachea midline, no thyromegaly or masses palpated, and no cervical lymphadenopathy. Supple, full range of motion without nuchal rigidity, or vertebral point tenderness. No Meningismus. Chest/axilla: Normal chest wall appearance and motion. Nontender with no deformity. No lesions are appreciated. Cardiovascular: Regular rate and rhythm with a normal S1 and S2. No gallops, murmurs, or rubs. Normal PMI, no JVD. No pulse deficits. Respiratory: Lungs have equal breath sounds bilaterally, clear to auscultation and percussion. No rales, rhonchi or wheezes noted. No increased work of breathing, no retractions or nasal flaring. 20:19 Skin: Warm, dry with normal turgor. Normal color with no rashes, no lesions, and no evidence of cellulitis. MS/ Extremity: Pulses equal, no cyanosis. Neurovascular intact. Full, normal range of motion. Neuro: Awake and alert, GCS 15, oriented to person, place, time, and situation. Cranial nerves II-XII grossly intact. Motor strength 5/5 in all extremities. Sensory grossly intact. Cerebellar exam normal. Normal gait. Psych: Awake, alert, with orientation to person, place and time. Behavior, mood, and affect are within normal limits. 20:19 Constitutional: The patient appears in no acute distress, alert, awake, uncomfortable. 20:19 Abdomen/GI: Inspection: abdomen appears normal, Bowel sounds: normal, in all quadrants, Palpation: moderate abdominal tenderness, in the left lower quadrant, mass, is not appreciated, rebound tenderness, is not appreciated, voluntary guarding, is not appreciated, involuntary guarding, is not appreciated, no appreciated organomegaly, Rectal exam: the exam is deferred, because of patient request, Indicators: McBurney's point is not tender, Birch's sign is negative, Rovsing's sign is negative, Obturator sign is negative, Psoas sign is negative, Liver: no appreciated palpable abnormalities, Hernia: not appreciated. 20:19 Back: normal spinal alignment noted, CVA tenderness, that is mild, is noted on the left, vertebral tenderness, is not appreciated, muscle spasm, is not present. Vital Signs: 19:45 BP 190 / 96; Pulse 102; Resp 20 S; Pulse Ox 98% on R/A; as6 05/23 00:06 BP 160 / 83; Pulse 77; Resp 18 S; Pulse Ox 99% on R/A; as6 MDM: 05/22 23:54 Differential diagnosis: bowel obstruction, diverticulitis, gastritis, gastroesophageal mh7 reflux disease, non-specific abd pain, Peptic Ulcer Disease, Pyelonephritis, Ureterolithiasis, urinary tract infection. Data reviewed: vital signs, nurses notes, lab test result(s), CBC, electrolytes, urinalysis, radiologic studies, CT scan. Data interpreted: Pulse oximetry: on room air is 98 %. Interpretation: normal. Counseling: I had a detailed discussion with the patient and/or guardian regarding: the historical points, exam findings, and any diagnostic results supporting the discharge/admit diagnosis, the presence of at least one elevated blood pressure reading (>120/80) during this emergency department visit, lab results, radiology results, the need for outpatient follow up, a urologist. Response to treatment: the patient's symptoms have resolved after treatment, the patient's blood pressure is in an acceptable range, mental status has returned to baseline, the patient no longer shows bradycardia, the patient is not short of breath, the patient is not tachycardic, the patient's pain is gone, the patient's temperature has normalized. 23:56 Patient medically screened. [facility] 05/22 19:39 Order name: Basic Metabolic Panel as6 05/22 19:39 Order name: CBC with Diff; Complete Time: 22:04 as6 05/22 19:39 Order name: Hepatic Function as6 05/22 19:39 Order name: Lipase as6 05/22 19:39 Order name: Basic Metabolic Panel; Complete Time: 20:40 EDIN 05/22 19:39 Order name: Liver (Hepatic) Function; Complete Time: 20:40 EDIN 05/22 19:39 Order name: Lipase; Complete Time: 20:40 EDIN 05/22 19:53 Order name: CT Abd/Pelvis - IV Contrast Only; Complete Time: 22:04 7 05/22 20:26 Order name: Manual Differential; Complete Time: 22:04 EDMS 05/22 22:05 Order name: Urine Microscopic Only; Complete Time: 23:45 7 05/22 22:10 Order name: Urine Culture [facility] 05/22 22:37 Order name: Urine Dipstick-Ancillary; Complete Time: 22:42 EDMS 05/22 19:39 Order name: IV Saline Lock; Complete Time: 19:48 as6 05/22 19:39 Order name: Labs collected and sent; Complete Time: 20:10 as6 05/22 22:05 Order name: Urine Dipstick-Ancillary (obtain specimen); Complete Time: 22:35 7 Administered Medications: 19:48 Drug: Zofran (Ondansetron) 4 mg Route: IVP; Site: left forearm; as6 20:00 Drug: NS 0.9% 1000 ml Route: IV; Rate: 1000 ml; Site: left forearm; as6 21:18 Follow up: Response: No adverse reaction; IV Status: Completed infusion; IV Intake: as6 1000ml 20:00 Drug: morphine 2 mg Route: IVP; Site: left forearm; as6 20:00 Drug: Pepcid (famotidine) 20 mg Route: IVP; Site: left forearm; as6 21:19 Follow up: Response: No adverse reaction as6 21:01 Drug: morphine 2 mg Route: IVP; Site: left forearm; as6 21:19 Follow up: Response: No adverse reaction; RASS: Alert and Calm (0) as6 22:35 Drug: Rocephin (cefTRIAXone) 1 grams Route: IV; Rate: per protocol; Site: left forearm; as6 05/23 00:13 Follow up: Response: No adverse reaction; IV Status: Completed infusion; IV Intake: [id number] 00:00 Drug: morphine 2 mg Route: IVP; Site: left forearm; as6 00:12 Follow up: Response: No adverse reaction; RASS: Alert and Calm (0) as6 Disposition Summary: 05/22/21 23:56 Discharge Ordered Location: Home [facility] Problem: new [facility] Symptoms: have improved [facility] Condition: Stable [facility] Diagnosis - Ureterolithiasis, Left 7 Followup: [facility] - With: Private Physician - When: 1 - 2 days - Reason: Worsening of condition, Recheck today's complaints, Continuance of care, Re-evaluation by your physician Followup: [facility] - With: John Kingsley MD - When: 1 - 2 days - Reason: Worsening of condition, Recheck today's complaints Discharge Instructions: - Discharge Summary Sheet [facility] - Kidney Stones, Lkfz-[id number]-Dpos [facility] Forms: - Medication Reconciliation Form [facility] - Thank You Letter [facility] - Antibiotic Education [facility] - Prescription Opioid Use [facility] Prescriptions: - Flomax 0.4 mg Oral capsule - take 1 capsule by ORAL route once daily 1/2 hour following the same meal each [facility] day; 7 capsule; Refills: 0, Product Selection Permitted - ondansetron 4 mg Oral tablet,disintegrating - place 1 tablet by TRANSLINGUAL route every 8 hours As needed; 10 tablet; [facility] Refills: 0, Product Selection Permitted - Cephalexin 500 mg Oral Capsule - take 1 capsule by ORAL route every 12 hours for 7 days; 14 capsule; Refills: 0, [facility] Product Selection Permitted - Tylenol-Codeine #3 300 mg-30 mg Oral - take 1 tablet by ORAL route every 6 hours As needed; 15 tablet; Refills: 0, [facility] Product Selection Permitted Signatures: Dispatcher [employer] Rafaela Chou, RN JONAS iw Homar Galeano MD MD [facility] Wagner Richards RN RN as6
[2021-05-23 00:33] VITALS: BP 160/83; O2SAT 99
== END 2021-05-23 00:13 | disposition home or self-care (01) ==
LOC: ER 18:17
DX: N20.1 Calculus of ureter (principal); I10 Essential (primary) hypertension; Z88.8 Allergy status to other drugs, medicaments and biological substances
CPT/HCPCS: 96365; 96361; 87088; 85025; 87086; 80048; 36415; 80076; 83690; 74177; 96375; 99284; 96366; Q9967; J2270 ×3; J7030; J2405; 81003; 81015